=== PATIENT | female | born 1940 | race Caucasian/White ===

== ENCOUNTER → 2018-09-23 15:03 | Outpatient (CLI) | payer OTHER, SELFPAY ==
--- NOTE | 2018-09-23 | DI.MG.S_ITS ---
BILATERAL DIGITAL SCREENING MAMMOGRAM 3D/2D WITH CAD POST LUMPECTOMY: 09/23/2018 CLINICAL: Routine screening. Family history of breast cancer. Personal history of breast cancer. Comparison is made to exams dated: 06/30/2017 mammogram, 05/03/2015 mammogram, and 05/02/2014 mammogram - [facility]. The tissue of both breasts is heterogeneously dense. This may lower the sensitivity of mammography. Current study was also evaluated with a Computer Aided Detection (CAD) system. There are benign post operative findings in the right breast. There also are benign calcifications in both breasts. No significant masses, calcifications, or other findings are seen in either breast. There has been no significant interval change. IMPRESSION: There is no mammographic evidence of malignancy. A 1 year screening mammogram is recommended. This exam was interpreted at Station ID: [id number]. NOTE: For mammograms, a report in lay terms will be sent to the patient. Approximately 15% of breast malignancies will not be visualized mammographically. In the management of a palpable breast mass, a negative mammogram must not discourage biopsy of a clinically suspicious lesion. Electronically Signed By: Brayan [email or web address]:09/23/2018 17:35:14 letter sent: Normal Exam ACR BI-RADS Category 2: Benign Finding(s) 3342F
== END ==
PROVIDERS: Family Provider Family Medicine; PCP Family Medicine; Visit Provider Family Medicine
DX: Z12.31 Encounter for screening mammogram for malignant neoplasm of breast (principal); Z85.3 Personal history of malignant neoplasm of breast; Z80.3 Family history of malignant neoplasm of breast
CPT/HCPCS: 77063; 77067

== ENCOUNTER → 2018-09-29 08:00 | Outpatient (CLI) | payer OTHER, SELFPAY ==
[2018-09-29 08:21] LABS: Add Manual Diff / Slide Review NO; Basophils Absolute Auto 0 /uL (0-100); Basophils Percent Auto 0.6 % (0-2); Eosinophils Absolute Auto 200 /uL (0-450); Eosinophils Percent Auto 2.6 % (2-4); Hematocrit 39.6 % (36-46); Hemoglobin 13.3 g/dL (12.0-16.0); Lymphocytes Absolute Auto 1800 /uL (1100-4500); Lymphocytes Percent Auto 29.1 % (25-40); Mean Corpuscular HGB Conc 33.7 % (30-36); Mean Corpuscular Hemoglobin 32.1 PG (26-34); Mean Corpuscular Volume 95.5 fL (80-100); Monocytes Absolute Auto 300 /uL (0-900); Monocytes Percent Auto 5.7 % (3-14); Neutrophils Absolute Auto 3800 /uL (1500-7000); Platelet Count 246 X10^3/uL (150-400); Red Blood Cell Count 4.14 X10^6/uL (4.0-5.2); Red Cell Distribution Width 13.3 % (11.6-14.8); White Blood Cell Count 6.1 X10^3/uL (4.5-11.0)
[2018-09-29 08:45] LABS: Alanine Aminotransferase 30 IU/L (9-52); Albumin 4.4 g/dL (3.5-5.0); Albumin Globulin Ratio 1.6 (1.0-2.8); Alkaline Phosphatase 77 U/L (38-126); Aspartate Aminotransferase 28 IU/L (14-36); Bilirubin Total 0.6 mg/dL (0.2-1.3); Blood Urea Nitrogen 26 mg/dL (7-17); Calcium 9.4 mg/dL (8.4-10.2); Carbon Dioxide 31 mmol/L (22-32); Chloride 98 mmol/L (98-107); Cholesterol 194 mg/dL (140-199); Estimated Glomerular Filt Rate 39.6 mL/min (>60); Globulin 2.7 g/dL (1.7-4.1); Glucose 100 mg/dL (80-110); HDL Cholesterol 65 mg/dL (40-60); HEMOLYSIS < 15 (0-50); LDL Cholesterol Calculated 95 mg/dL (<100); Potassium 4.8 mmol/L (3.4-5.1); Sodium 137 mmol/L (137-145); Total Protein 7.1 g/dL (6.3-8.2); Triglycerides 171 mg/dL (35-150)
[2018-09-29 09:45] LABS: Thyroid Stimulating Hormone 3.81 uIU/mL (0.47-4.68)
== END ==
PROVIDERS: PCP Family Medicine; Visit Provider Family Medicine
DX: E78.2 Mixed hyperlipidemia (principal); I10 Essential (primary) hypertension
CPT/HCPCS: 36415; 80053; 80061; 84443; 85025

== ENCOUNTER → 2018-10-22 09:43 | Outpatient (CLI) | payer OTHER, SELFPAY | PROVIDERS: PCP Family Medicine; Visit Provider Family Medicine | DX: M85.851 Other specified disorders of bone density and structure, right thigh (principal); Z78.0 Asymptomatic menopausal state; Z85.3 Personal history of malignant neoplasm of breast | CPT/HCPCS: 77080 ==

== ENCOUNTER → 2018-12-17 14:05 | Outpatient (CLI) | payer OTHER, SELFPAY ==
[2018-12-17 15:08] LABS: Add Manual Diff / Slide Review NO; Basophils Absolute Auto 0 /uL (0-100); Basophils Percent Auto 0.5 % (0-2); Eosinophils Absolute Auto 100 /uL (0-450); Eosinophils Percent Auto 1.4 % (2-4); Hematocrit 38.5 % (36-46); Hemoglobin 13.3 g/dL (12.0-16.0); Lymphocytes Absolute Auto 1900 /uL (1100-4500); Mean Corpuscular HGB Conc 34.5 % (30-36); Mean Corpuscular Hemoglobin 32.5 PG (26-34); Mean Corpuscular Volume 94.1 fL (80-100); Monocytes Absolute Auto 400 /uL (0-900); Neutrophils Absolute Auto 4600 /uL (1500-7000); Neutrophils Percent Auto 65.1 % (50-75); Platelet Count 280 X10^3/uL (150-400); Red Blood Cell Count 4.09 X10^6/uL (4.0-5.2); Red Cell Distribution Width 13.5 % (11.6-14.8); White Blood Cell Count 7.1 X10^3/uL (4.5-11.0)
[2018-12-17 15:34] LABS: Carbon Dioxide 29 mmol/L (22-32); Chloride 99 mmol/L (98-107); HEMOLYSIS < 15 (0-50); Potassium 4.6 mmol/L (3.4-5.1); Sodium 137 mmol/L (137-145)
== END ==
PROVIDERS: PCP Family Medicine; Visit Provider Orthopaedic Surgery
DX: M16.10 Unilateral primary osteoarthritis, unspecified hip (principal); Z01.818 Encounter for other preprocedural examination; Z01.812 Encounter for preprocedural laboratory examination
CPT/HCPCS: 36415; 80051; 85025; 93005

== ENCOUNTER 2019-01-10 06:18 | Inpatient (IN) | payer OTHER, SELFPAY ==
[2018-12-27 08:57] VITALS: BMI 20.6
[2019-01-10] VITALS (15 sets, daily range): BP systolic 96–157; BP diastolic 53–69; PULSE 66–80; RESP 16–20; TEMP 35.4–37.1; O2SAT 97–100; BMI 19.4
--- NOTE | 2019-01-10 06:00 | DI.RAD.S_ITS ---
PROCEDURE: XR PELVIS 1-2V INDICATIONS: post op films TECHNIQUE: 1 view of the lower pelvis acquired. COMPARISON: [facility] [place]Sar[facility] [place], ALCIDES, XR PELVIS WITH LATERAL HIP LEFT, 12/08/2018, 15:10. FINDINGS: Bones: Patient is status post left hip arthroplasty, with hardware components in expected positions. The hip joint appears congruent. The visualized bony structures appear intact. Moderate degenerative narrowing is present within the right hip with a slight appearance of femoral head remodeling. Soft tissues: Overlying postoperative changes are noted. No suspicious soft tissue densities. IMPRESSION: Left hip arthroplasty as above. Dictated by: Kita Crystal M.D. on 01/10/2019 at 11:09 Approved by: Kita Crystal M.D. on 01/10/2019 at 11:09
[2019-01-10] MEDS: ACETAMINOPHEN 325 MG TABLET 975 MG PO ×3 (07:21→20:23)
[2019-01-10] MEDS: PREGABALIN 75 MG CAPSULE PO (07:21)
[2019-01-10] MEDS: CELECOXIB 200 MG CAPSULE PO (07:21)
[2019-01-10] MEDS: LACTATED RINGERS 1,000 ML 42 ML IV (07:47)
[2019-01-10] MEDS: TRANEXAMIC ACID 1,000 MG VIAL 1000 MG INJ ×2 (07:53→09:27)
--- NOTE | 2019-01-10 07:54 | PM.PREOP ---
Pre-operative Note Interval Note History & Physical reviewed/Exam performed by Physician: Yes Changes to H&P: No
--- NOTE | 2019-01-10 08:31 | SUR.OPER ---
Head on pillow. Supine on fracture table with operative leg secured in traction. Other leg in traction boot without traction applied. Left Arm across chest, secured with sheet. Right arm secured on padded armboard
[2019-01-10] MEDS: KETOROLAC 30 MG/ML VIAL IV (08:41)
[2019-01-10] MEDS: CEFAZOLIN 1 GM VIAL IV (08:41)
[2019-01-10] MEDS: MORPHINE 4 MG/ML INJ INJ (08:42)
--- NOTE | 2019-01-10 09:57 | PM.OP.1 ---
Operative Date/Time/Diagnoses Date of procedure: 01/10/19 Time of procedure: 09:57 Pre-op diagnosis: Left hip degenerative joint disease Post-op diagnosis: same Procedure & Clinicians Procedure: Left total hip arthroplasty, direct anterior approach (CPT code 32801 with glass ribbon machine operator assistant) Same procedure as scheduled: Yes Indications: Patient is an 78-year-old female with severe left hip DJD. The patient has pain with activities and at rest, limited ambulation and activity tolerance, difficulties with ADLs, and failure of conservative treatment. We have discussed the nature of condition, treatment options, risks and benefits, and patient elects to proceed with total hip arthroplasty via direct anterior approach and gives informed consent. Surgeon: Arben Centeno Diversity Specialist: Garland Booker Anesthesia Type: General and Spinal Operative Notes Closure Type: primary Specimen(s): none sent Prosthetic devices, grafts, tissues, transplants, or devices: Acetabulum: Lopez and Nephew R3 acetabular component size 52 mm Femoral component: Lopez and Nephew Anthology stem size 8 with standard offset Femoral head: 36 mm + 4 cobalt chrome Estimated Blood Loss (mL): 150 Blood products transfused: none Procedure in detail: Patient brought to the operating room where after administration of intravenous antibiotics and satisfactory induction of anesthetic patient placed supine on the Anthony table with all bony prominences well padded in feet placed in the ski boots. First dose of tranexamic acid was administered, and the left hip and lower extremity prepped and draped in usual sterile fashion. Incision made beginning just distal and lateral to the ASIS and carried distally. Incision then carried through the subcutaneous tissues down the fascia of the TFL which was incised longitudinally and the muscle was stripped posteriorly allowing entry into the intermuscular interval. Retractors then placed in the circumflex vessels identified and cauterized. Pericapsular tissues then debrided and a capsulotomy was performed with lateral capsulectomy. After capsular releases were performed the location of the femoral neck cut was determined and double checked with C-arm. Femoral neck cut then made and the femoral head removed with the corkscrew device. Acetabular retractors then placed and periacetabular tissues were debrided. Acetabular reaming to 51 mm was performed with an excellent circumferential ream and fit with the trial. Fluoroscopic images with the trial in place demonstrated excellent position and alignment so the trial was removed, the acetabulum irrigated, and a size 52 mm Lopez and Nephew R3 acetabular component was inserted and impacted into position under fluoroscopic guidance. Excellent position and fixation achieved a permanent liner was then inserted. The femur was then maximally externally rotated extended and adducted. Remaining pericapsular tissues were released, and then sequential broaching of the femur was performed up to size 8. Trial reduction performed with a [address] yielded excellent leg length range of motion and stability characteristics and fluoroscopic images demonstrated excellent position fixation of the implant and excellent leg length relationships. The trial and broach were then removed and the canal irrigated a size 8 anthology stem was selected inserted and impacted into position and a +4 ball was affixed. The hip was then reduced and excellent stability was achieved. The pericapsular tissues infiltrated with ropivacaine, morphine, and Toradol. Final fluoroscopic images demonstrated excellent position and fixation of implants and excellent leg lengths. The wound was then copious irrigated 2nd dose of tranexamic acid was administered intravenously. The fascia of the TFL was closed with a running #1Vicryl. Subcutaneous layer closed with 2 O Vicryl and skin closed with a running intracuticular locking stitch and skin adhesive. Sterile dressings applied. Complications: none Condition: stable Disposition: PACU Plan for aftercare: Patient will be admitted to the acute care pizarro, and anticipate discharge on postop day 1-2 with follow-up in office in 10-14 days. Outpatient physical therapy will be arranged and patient will continue to observe posterior hip precautions. Patient will continue use of postoperative Lovenox for 10 days postop.
--- NOTE | 2019-01-10 10:24 | SUR.PHASEI ---
Report called to Gab
--- NOTE | 2019-01-10 10:38 | SUR.PHASEI ---
Pt transferred to the floor with belongings bag. Report to Gab. VS stable. IV saline locked. Lt hip drsg cdi. Pt able to wiggle toes and bend lt knee.
--- NOTE | 2019-01-10 11:03 | CM.DANOTE ---
DCP: Case received, EMR reviewed and met with patient. Introduced self and role. Updated whiteboard in patient's room. Was able to retrieve information from patient regarding her baseline health. DCP template completed with information currently available. Patient is a 78 year old female who admitted early this morning to the care of the surgical team. PCP: Dr. Seymour. Payer: confirmed: [facility]. Patient came to hospital for surgical procedure. She had L. Total Hip Arthroplasty. Met briefly with patient. Alert and oriented. Defined role of site planner. She resides with her Celia, here in [place]. Mentioned resources, such as home health, and she stated, I don't think I'll need it. Patient has not yet been up working with physical therapy. P: DCP to continue to follow. Will collaborate with the physical therapy team as well. Tram Valentin RN/Paper Box Maker
[2019-01-10] MEDS: LACTATED RINGERS 1,000 ML 125 ML IV (11:13)
[2019-01-10] MEDS: ROPIVACAINE 0.5% PF 5 MG/ML 20ML AMP 60 ML INJ (11:51)
--- NOTE | 2019-01-10 15:26 | PC.ADMIT ---
[email or web address] [address] Admission Note: The patient,Lupe Suazo,78 y/o, was given written information regarding hospital policies, unit procedures and contact persons. Patient's smoking status: Never smoker. Vital Signs - 8 hr 01/10/19 09:49 01/10/19 09:54 01/10/19 09:59 Temperature 96.5 F L Pulse Rate 78 73 73 Respiratory Rate 16 17 17 Blood Pressure 96/53 L 108/53 L 118/59 L Pulse Oximetry 97 99 99 01/10/19 10:04 01/10/19 10:09 01/10/19 10:19 Temperature Pulse Rate 71 75 66 Respiratory Rate 18 18 17 Blood Pressure 126/64 117/59 L 129/63 Pulse Oximetry 100 99 100 01/10/19 10:38 01/10/19 11:08 01/10/19 11:36 Temperature 95.8 F L 96 F L 96.4 F L Pulse Rate 69 70 69 Respiratory Rate 16 16 16 Blood Pressure 130/62 124/66 133/63 Pulse Oximetry 100 100 100 01/10/19 12:28 01/10/19 13:35 Temperature 96.6 F L 96.7 F L Pulse Rate 72 77 Respiratory Rate 16 16 Blood Pressure 144/63 H 139/62 Pulse Oximetry 98 100 PATIENT HAS BEEN STABLE SINCE ADMIT TO UNIT. FULL SENSATION AND MVMT. CMS INTACT. RA SAT UPPER 90'S TO 100%. TOLERATED LUNCH, NO NAUSEA. CONT PULSE OX IN PLACE. DENIES PAIN. URGE TO VOID AT THIS TIME. PHYSICAL THERAPY IN W/ PATIENT. REPORT GIVEN TO ADI SHAIKH RN.
--- NOTE | 2019-01-10 15:44 | PT.IIE ---
Current Diagnoses Unilateral primary osteoarthritis, left hip (01/10/19) Surgery Performed Operation Date: 01/10/19 07:45 Actual Procedures p Total Hip Arthroplasty/Anterior(Left) - Arben Centeno MD Surgical History (Last Updated 12/27/18 @ 09:10 by Veena Miranda, RN) History of left oophorectomy (Acute ~1967) History of lumpectomy of right breast (Acute ~1984) History of total abdominal hysterectomy (Acute) Status post bilateral cataract extraction (Acute ~2009) History of tonsillectomy Status post hysterectomy Medical History (Last Updated 12/27/18 @ 09:10 by Veena Miranda RN) Breast cancer, right (Acute ~1984) Easy bruisability (Acute) HTN (hypertension) (Acute) Lymphedema (Acute) Osteoarthritis (Acute) Ovarian cyst, left (Acute ~1967) Psoriasis (Acute) Sebaceous cyst (Acute) Subcutaneous mass (Acute ~08/2017) Physical Therapy Inpatient Evaluation/Re-Eval M1 PT/OT-IP Prior Functional Status Start: 01/10/19 15:44 Freq: NEEDED Status: Active Protocol: Document 01/10/19 15:44 RS (Rec: 01/10/19 15:53 RS [email or web address]) Medical Review Prior Functional Status Medical History Reviewed Yes Diet/Fluid Consistency Regular Communication no known deficits Mobility and Gait ind without device but does have a FWW ready to go Activities of Daily Living and IADL's ind Prior Functional Level (Other details) can provide 24/7 assist if needed Social History Household Members spouse Living Arrangements House Number of Floors (Floors) One Floor Number of Stairs To Enter/Railing? 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 [employer] M2 PT-IP Current Condition Start: 01/10/19 15:44 Freq: NEEDED Status: Active Protocol: Document 01/10/19 15:44 RS (Rec: 01/10/19 15:53 RS [email or web address]) Physical Therapy Current Condition Current Condition Evaluation Date 01/10/19 Treatment Diagnosis L anterior DIANA Onset Date 01/10/19 Precautions Anterior Hip Precautions No Hip Extension No Hip External Rotation Weight Bearing Status Weight Bearing Status Weight Bear as Tolerated M3 PT-IP Subjective Start: 01/10/19 15:44 Freq: NEEDED Status: Active Protocol: Document 01/10/19 15:44 RS (Rec: 01/10/19 15:53 RS [email or web address]) Subjective Physical Therapy Visit Type Type Initial Evaluation Visit Start Time 14:45 Visit Stop Time 15:44 Total Visit Minutes 59 Physical Therapy Visit Comments Patient Comments Pt denies any pain, is looking forward to moving for the first time, is hoping to go directly home. Patient Goals go home Therapy Pain Assessment Pain When Pain Assessed During Mobility Pain Present Pain Present Denied Pain M4 PT-IP Mobility and Gait Start: 01/10/19 15:44 Freq: NEEDED Status: Active Protocol: Document 01/10/19 15:44 RS (Rec: 01/10/19 15:53 RS [email or web address]) PT-Bed Mobility Assessment Rolling Type of Rolling Roll to Left Level of Assist Contact Guard Assistance Supine to Sit Supine to Sit Minimal Assistance Bedrails Sit to Supine Sit to Supine Minimal Assistance Bedrails Scooting Scooting to Edge of Bed Contact Guard Assistance PT-Transfer Assessment Sit to and From Stand Sit to and from Stand Minimal Assistance Equipment Transfer Assistive Device Gait Belt Front Wheeled Walker Transfers Transfer Destination Bed Bedside Commode Transfer Technique Stand Step Pivot Transfer Ability Level of Assist Minimal Assistance Comments Mobility Comments Pt's first attempt at sitting up to long sit was no successful as pt suddenly had the strong urge to urinate. Pt needing/wanting to go quickly and did not have brief on. PT helped pt quickly sit up to EOB and stand pivot to the R to the BSC. Pt trying to keep legs together to prevent leakage which made the actually transfer quite challenging. Once pt was able to urinate and get cleaned up pt was able to stand up with CGA and perform the transfer back to bed with CGA though stepping pattern was still uncoordinated and pt was quite shakey. Min A to return to supine. Further mobility could not be trialed as RN needing to change pt's IV because it was leaking blood. Gait Assessment Comments Gait Comments not yet assessed Stair Climbing Assessment Comments Stair Climbing Comments not yet assessed PT-Balance Assessment Sitting Balance and Reactions Static Sitting Balance Ability Normal Dynamic Sitting Balance Ability Good Standing Balance and Reactions Static Standing Balance Ability Fair Dynamic Standing Balance Ability Poor Device Used FWW M5 PT-IP Objective Assessments Start: 01/10/19 15:44 Freq: NEEDED Status: Active Protocol: Document 01/10/19 15:44 RS (Rec: 01/10/19 15:53 RS [email or web address]) Orientation Orientation/Cognition Level of Alertness Alert Orientation Name Age Birthday Month Date Year Day of Week Place Situation Language Function Ability No Deficits Noted Safety Awareness Understands Safety Issues Memory Description No Deficits Noted Gross Range of Motion Upper Extremity ROM Assessment Within Functional Limits Lower Extremity ROM Impairments limited by anterior hip precautions but otherwise WFL Strength Upper Extremity Strength Assessment Within Functional Limits Comments Strength Comments LLE limited after surgery, RLE grossly intact M6 PT-IP Treatment Start: 01/10/19 15:44 Freq: NEEDED Status: Active Protocol: Document 01/10/19 15:44 RS (Rec: 01/10/19 15:53 RS [email or web address]) Physical Therapy Treatment Exercises Exercises Ankle Pumps Gluteal Sets Quad Sets Heel Slides Supine Hip Abduction Education Education Provided Precautions Weight Bearing Status Post-Op Packet Safety M7 PT-IP Assessment and Plan Start: 01/10/19 15:44 Freq: NEEDED Status: Active Protocol: Document 01/10/19 15:44 RS (Rec: 01/10/19 15:53 RS [email or web address]) PT Summary Assessment and Plan Potential Rehabilitation Potential Good Status of Condition at Evaluation Evolving Summary Impairments Balance Coordination Bed Mobility Transfers Gait Activity Tolerance Frequency of Treatment Frequency Of Treatment Twice a Day Recommendations To Nursing Amount of Assist Needed 1 Person Assist Discharge Recommendations PT Discharge Recommendations Home with Assistance Home Health
--- NOTE | 2019-01-10 16:28 | PC.NURSE ---
Addendum entered by Rena Griffith R.N. 01/10/19 20:44: Pt awake, watching TV. Denies any discomfort when asked. IVF continue as per orders w/o incidence. Aquacell dsg CDI. Satisfactory post op course. Call light w/in reach, bed alarm on for pt safety. Continue w/plan of care. Original Note: Pt visiitng w/family. Assistd to BSC by PT w/o incidence. Voided 450cc clear yellow urine. IV LR infusing into the LFA @ 125 via pump w/o incidence. Aquacell dsg to left anterior CDI. Stable post op course. Call light w/in reach, pt calls appropriatly fo needs.
[2019-01-10] MEDS: CEFAZOLIN 2 GM/100 ML FROZ.PIGGY IV ×2 (17:10→23:54)
--- NOTE | 2019-01-11 00:16 | PC.NURSE ---
2300- Pt POD#0 L total hip via anterior approach; aquasil drsg in place CDI. Pt moving SBA w/ FWW to bathroom, denies any postop pain at this time. Cont SpO2 taken off by this RN as its been >12 hours postop, sats stable on RA. LR running as ordered, pt having good urine output/no nausea so LR shut off per protocol. 0000- Second dose of IV Cefazolin hung per orders.
[2019-01-11 04:40] VITALS: BP 140/73; PULSE 74; RESP 16; TEMP 36.7; O2SAT 98
[2019-01-11 06:10] LABS: Hematocrit 31.9 % (36-46); Hemoglobin 10.9 g/dL (12.0-16.0)
--- NOTE | 2019-01-11 07:38 | PM.DS.1 ---
History of Present Illness Date Patient Seen: 01/11/19 Time Patient Seen: 07:39 Chief complaint: [id number] Total Hip Arthroplasty Narrative: Patient is an 78-year-old female with severe left hip DJD. The patient has pain with activities and at rest, limited ambulation and activity tolerance, difficulties with ADLs, and failure of conservative treatment. We have discussed the nature of condition, treatment options, risks and benefits, and patient elects to proceed with total hip arthroplasty via direct anterior approach and gives informed consent. Discharge Providers Date of admission: 01/10/19 06:18 Discharge Date: 01/11/19 Primary care physician: Sherman Syemour MD Consults: 01/10/19 10:38 Consult to Discharge Planning Routine Comment: Consult to Physical Therapy Evaluate & Treat Comment: Physician Instructions: post op DIANA protocol Consult to Respiratory Therapy Evaluate & Treat Comment: Physician Instructions: Evaluate and treat Discharge provider: Jovita Herman PA-C Summary Discharge Diagnosis: s/p DIANA Hospital Course: Lupe was admitted for left total hip arthroplasty anterior approach with Dr. Centeno. Hospital course was unremarkable. On postop day 1. Patient was ready to discharge home. Her pain was well controlled. She is eating and voiding without difficulty or assistance. She has been up with physical therapy and ambulating. She has all her appointments scheduled for the outpatient setting. Her calves were soft, compressible, nontender bilaterally. Lovenox for VTE prophylaxis. Exam Vital Signs (past 8 hours): - 01/10/19 23:45 01/11/19 04:40 Temperature 97.5 F L 98.1 F Pulse Rate 73 74 Respiratory Rate 20 16 Blood Pressure 149/69 H 140/73 Pulse Oximetry 99 98 Oxygen Delivery Method Room Air Narrative Exam Narrative: Patient lying in bed in no acute distress. She is alert and oriented x3. Dressing on left hip is CDI. Calves are soft, compressible, nontender bilaterally. Sensation intact to light touch throughout bilateral lower extremities. She does not have a lot of pain this morning. She got up with physical therapy yesterday after surgery. Objective Labs Result Diagrams: 01/11/19 05:54 Labs: Laboratory Results - last 24 hr 01/11/19 05:54 Hgb 10.9 L Hct 31.9 L Discharge Plan Discharge Plan Patient Disposition: Home Discharge Med Rec/Prescriptions Prescriptions: New hydroxyzine pamoate 25 mg Capsule 25 mg PO Q6HR PRN (Reason: Spasms) Qty: 20 RF: 0 enoxaparin [Lovenox] 40 mg/0.4 mL Syringe 40 mg subcut DAILY 9 Days RF: 0 Continued amlodipine 2.5 mg tablet 2.5 mg PO DAILY Qty: 90 RF: 3 Changed acetaminophen [Tylenol Extra Strength] 500 mg Tablet 1,000 mg PO TID Qty: 0 RF: 0 Follow up/Referrals: Sherman Seymour MD [Primary Care Provider] - Arben Centeno MD [Physician] - Provider Discharge Instructions Activity: DIANA anterior approach precautions Skin/Wound/Dressing Care Report to your healthcare provider any signs of infection, such as:: chills, fever and increased pain Dressing: leave in place Discharge Data Primary Care Provider: Sherman Seymour Attending Provider: Arben Centeno Admit Date/Time: 01/10/19 06:18
[2019-01-11] MEDS: AMLODIPINE 2.5 MG TABLET PO (08:42)
[2019-01-11] MEDS: ACETAMINOPHEN 325 MG TABLET 975 MG PO (08:42)
[2019-01-11 08:58] VITALS: BP 125/63; PULSE 78; RESP 16; TEMP 36.3; O2SAT 96
[2019-01-11] MEDS: ENOXAPARIN 40 MG/0.4 ML SYRINGE SUBCUT (09:53)
--- NOTE | 2019-01-11 09:54 | PT.IPTN ---
Current Diagnoses Unilateral primary osteoarthritis, left hip (01/10/19) Surgery Performed Operation Date: 01/10/19 07:45 Actual Procedures p Total Hip Arthroplasty/Anterior(Left) - Arben Centeno MD Physical Therapy Treatment Note M2 PT-IP Current Condition Start: 01/10/19 15:44 Freq: NEEDED Status: Active Protocol: Document 01/10/19 15:44 RS (Rec: 01/10/19 15:53 RS [email or web address]) Physical Therapy Current Condition Current Condition Evaluation Date 01/10/19 Treatment Diagnosis L anterior DIANA Onset Date 01/10/19 Precautions Anterior Hip Precautions No Hip Extension No Hip External Rotation Weight Bearing Status Weight Bearing Status Weight Bear as Tolerated M3 PT-IP Subjective Start: 01/10/19 15:44 Freq: NEEDED Status: Active Protocol: Document 01/11/19 09:39 SA (Rec: 01/11/19 09:54 SA [id number]) Subjective Physical Therapy Visit Type Type Treatment Note Visit Start Time 08:27 Visit Stop Time 09:00 Total Visit Minutes 33 Number of PIER HAND HELPER Visits 1 Physical Therapy Visit Comments Patient Comments Pt has improving LLE sensation and very little pain. Therapy Pain Assessment Pain When Pain Assessed During Mobility Pain Present Pain Present Pain Reported Location Left Medial Hip Intensity 2 Scale Used Numeric (1 - 10) Pain Management Techniques Apply Cold Timing of Activity with Medications M4 PT-IP Mobility and Gait Start: 01/10/19 15:44 Freq: NEEDED Status: Active Protocol: Document 01/11/19 09:39 SA (Rec: 01/11/19 09:54 SA [id number]) PT-Bed Mobility Assessment Rolling Type of Rolling Roll to Left Level of Assist Standby Assistance Supine to Sit Supine to Sit Contact Guard Assistance Bedrails Sit to Supine Sit to Supine Contact Guard Assistance Bedrails Scooting Scooting to Edge of Bed Standby Assistance PT-Transfer Assessment Sit to and From Stand Sit to and from Stand Contact Guard Assistance Equipment Transfer Assistive Device Gait Belt Front Wheeled Walker Transfers Transfer Destination Bed Chair Transfer Technique Stand Step Pivot Transfer Ability Level of Assist Contact Guard Assistance Comments Mobility Comments Pt with improving mobility, CGA for bed mobility and transfers. Uses FWW safely. Pt reports very little pain with WBing. Gait Assessment Gait Gait Assistance Required: Standby Assistance Contact Guard Assist 1 Person Assist Distance (Feet) 200 Able to Maintain Weight Bearing Status Yes During Gait Assistive Devices Assistive Device Gait Belt Front Wheeled Walker Orthotic/Prosthetic Devices or Brace: No Gait Deviations General Gait Pattern Decreased Stride Length Step-to Gait Factors Limiting Gait Function Factors Limiting Gait Function Decreased Activity Tolerance Decreased Strength Comments Gait Comments Pt with step to gait pattern to maintain ANT hip precautions. Pt forgets at times and needs cues to maintain as she has very little pain and reverts back to normal gait pattern. Stair Climbing Assessment Evaluation Level of Assist On Stairs Contact Guard Assistance 1 Person Assistance Devices Stair Climbing Assistive Devices Left Railing Right Railing Technique/Endurance Stair Climbing Direction Ascend and Descend Stair Climbing Technique Step to Step Number of Steps Climbed 1 Query Text: Stair Climbing Set # Repetitions (reps) 2 Comments Stair Climbing Comments CGA with step to gait and use of B rails, pt had incidence of R knee buckle but was able to recover with Min A. PT-Balance Assessment Comments Other Balance Tests/Deviations/Treatment Standing weight shifting, : postural correction and decreased WBing through UEs. M5 PT-IP Objective Assessments Start: 01/10/19 15:44 Freq: NEEDED Status: Active Protocol: Document 01/10/19 15:44 RS (Rec: 01/10/19 15:53 RS [email or web address]) Orientation Orientation/Cognition Level of Alertness Alert Orientation Name Age Birthday Month Date Year Day of Week Place Situation Language Function Ability No Deficits Noted Safety Awareness Understands Safety Issues Memory Description No Deficits Noted Gross Range of Motion Upper Extremity ROM Assessment Within Functional Limits Lower Extremity ROM Impairments limited by anterior hip precautions but otherwise WFL Strength Upper Extremity Strength Assessment Within Functional Limits Comments Strength Comments LLE limited after surgery, RLE grossly intact M6 PT-IP Treatment Start: 01/10/19 15:44 Freq: NEEDED Status: Active Protocol: Document 01/11/19 09:39 (Rec: 01/11/19 09:54 [id number]) Physical Therapy Treatment Exercises Exercises Ankle Pumps Gluteal Sets Quad Sets Heel Slides Supine Hip Abduction Education Education Provided Precautions Weight Bearing Status Post-Op Packet Safety M7 PT-IP Assessment and Plan Start: 01/10/19 15:44 Freq: NEEDED Status: Active Protocol: Document 01/11/19 09:39 (Rec: 01/11/19 09:54 [id number]) PT Summary Assessment and Plan Potential Rehabilitation Potential Good Status of Condition at Evaluation Evolving Summary Assessment Summary Pt progressing well, able to manage bed mobility, transfers , gait and steps safely and understands hip precautions. Anticipate d/c home with help. Frequency of Treatment Frequency Of Treatment Twice a Day Recommendations To Nursing Amount of Assist Needed 1 Person Assist Discharge Recommendations PT Discharge Recommendations Home with Assistance Other Discharge Recommendations home health vs OPPT
--- NOTE | 2019-01-11 11:00 | PC.NURSE ---
Reviewed discharge paperwork with patient. Lovenox prescription given, 2 other prescriptions fulfilled before surgery. Pt stated she had no other questions. Pt picked up by daughter, brought down to emergency room entrance by student nurse. Pt tolerated discharge well.
== END 2019-01-11 11:10 | disposition home or self-care (01) | DRG 470 ==
PROVIDERS: Admitting Provider Orthopaedic Surgery; PCP Family Medicine; Visit Provider Orthopaedic Surgery
PROC: 0SRB02Z Replacement of Left Hip Joint with Metal on Polyethylene Synthetic Substitute, Open Approach (ICD-10-PCS; CPT 27130; principal; 2019-01-10 07:45)
DX: M16.12 Unilateral primary osteoarthritis, left hip (principal); I10 Essential (primary) hypertension
CPT/HCPCS: 36415; 72170; 85014; 85018; 97110; 97116; 97162; 97530; C1776; J0690; J1650; J1885; J2250; J2270; J2795

== ENCOUNTER 2019-02-08 09:00 | Outpatient (RCR) | payer OTHER, SELFPAY ==
--- NOTE | 2019-01-05 17:24 | PT.OIE ---
Current Diagnoses Unilateral primary osteoarthritis, unspecified hip (01/05/19) Past Medical History (Last Updated 12/27/18 @ 09:10 by Veena Miranda RN) Breast cancer, right (Acute ~1984) Easy bruisability (Acute) HTN (hypertension) (Acute) Lymphedema (Acute) Osteoarthritis (Acute) Ovarian cyst, left (Acute ~1967) Psoriasis (Acute) Sebaceous cyst (Acute) Subcutaneous mass (Acute ~08/2017) Past Surgical History (Last Updated 12/27/18 @ 09:10 by Veena Miranda RN) History of left oophorectomy (Acute ~1967) History of lumpectomy of right breast (Acute ~1984) History of total abdominal hysterectomy (Acute) Status post bilateral cataract extraction (Acute ~2009) History of tonsillectomy Status post hysterectomy Provider Visit Care Team Role Provider Type Sherman Seymour MD Primary Care Provider Physician Specialty: Family Practice Address: [address] [place] [address], [id number] Email: [email or web address] Arben Centeno MD Attending Provider Physician Specialty: Orthopedic Surgery Address: [address] [place] [address], [id number] Email: [email or web address] Physical Therapy Initial Evaluation PT-OP-A Visit Information Start: 01/05/19 14:37 Freq: Status: Active Protocol: Document 01/05/19 14:39 EA (Rec: 01/05/19 15:12 EA [id number]) Out-Patient Physical Therapy Visit Information Visit Information Visit Type Initial Evaluation Visit Start Time 13:00 Visit Stop Time 13:40 Total Visit Minutes 40 Visit Number 1 Number of WAREHOUSE WORKER 2ND SHIFT Visits 0 Evaluation Information Evaluation Date 01/05/19 Precautions Precautions Post DIANA surgery posterior hip pre-cautions PT-OP-B Current Condition Start: 01/05/19 14:37 Freq: Status: Active Protocol: Document 01/05/19 14:39 EA (Rec: 01/05/19 15:12 EA [id number]) Current Condition History of Current Condition Onset Date 2 years ago Current Complaints Left hip pain, stiffness, and weakness History of Current Condition Present hip condition started more than 2 years ago with no history of injury. Had formal PT 2 years ago and still continuing her HEP since outpatient PT discharge. Pt reports will undergo L DIANA this coming January 10, 2019. She denies knowledge about hip pre-cautions and HEP. Prior Treatments and Tests 2 years ago had formal PT and good results Future Testing and Treatments Planned Left DIANA @ [facility] this coming January 10, 2019 Treatment Goals Patient/Caregiver Goals Patients wants to be able to get back to previous level of function. Gardening and daily walks. Prior Functional Status Baseline Function- ADL's Independent Baseline Function- Mobility Independent Baseline Function- Gait Daily walks > 30 mins with her dog Baseline Function- Work/School Retired Baseline Function- Recreation/Hobbies Daily walks with her dog, backyard gardening Current Functional Impairments (Reported) Functional Limitations- ADL's Limited in activities that requires bending, deep squatting, and long distance walking. Functional Limitations- Mobility/Gait indep with no AD with less < 30 mins walks due to increased of pain Functional Limitations- Work/School Retired Functional Limitations- Recreation/ Unable to walk more than 30 Hobbies mins PT-OP-C Subjective Start: 01/05/19 14:37 Freq: Status: Active Protocol: Document 01/05/19 14:39 EA (Rec: 01/05/19 15:12 EA [id number]) OP-PT Subjective Patient Comments Patient Comments My walks have gotten shorter Patient Reported Progress Worse Patient Questionnaires Lower Extremity Functional Scale LEFS Score 50 LEFS Impairment 20 to 39% Impaired (Score 48- 62) OP-PT Pain Assessment Location Left Medial Hip Pain Location Details left hip Intensity 4 Description Aching Frequency Intermittent Pain Aggravating Factors ADL's Activity Exercise Walking Lifting Pain Alleviating Factors Medication PT-OP-F Manual Assessment Start: 01/05/19 14:37 Freq: Status: Active Protocol: Document 01/05/19 14:39 EA (Rec: 01/05/19 15:12 EA [id number]) Manual Assessments Soft Tissue Assessment Soft Tissue Mobility Assessment Tight hip flexors, ITB, left hip ER Joint Mobility Assessment Joint Mobility Assessment decreased hip joint mobility PT-OP-G Mobility & Gait Start: 01/05/19 14:37 Freq: Status: Active Protocol: Document 01/05/19 14:39 EA (Rec: 01/05/19 15:12 EA [id number]) OP Gait Assessment Gait Gait Assistance Required: Independent Able to Maintain Weight Bearing Status Yes During Gait Assistive Devices Assistive Device None Gait Deviations General Gait Pattern Antalgic PT-OP-J Posture/Palpation/Skin Start: 01/05/19 14:37 Freq: Status: Active Protocol: Document 01/05/19 15:55 EA (Rec: 01/05/19 15:58 EA [id number]) Palpation Assessment Location One Palpation Location left hip Palpation Findings Soft Tissue Tightness PT-OP-K Range of Motion Start: 01/05/19 14:37 Freq: Status: Active Protocol: Document 01/05/19 15:55 EA (Rec: 01/05/19 15:58 EA [id number]) Hip Goniometric Range of Motion Hip Measured in Degrees Right Active Testing Position Supine Flexion w/Knee Flexed 125 Extension 15 Internal Rotation 30 External Rotation 30 Left Active Testing Position Supine Flexion w/Knee Flexed 110 Extension 5 Internal Rotation 15 External Rotation 25 PT-OP-L Special Tests Start: 01/05/19 14:37 Freq: Status: Active Protocol: Document 01/05/19 14:39 EA (Rec: 01/05/19 15:12 EA [id number]) Special Tests Hip Special Tests PIERCE Test Results + PT-OP-M Strength Start: 01/05/19 15:57 Freq: Status: Active Protocol: Document 01/05/19 17:06 EA (Rec: 01/06/19 14:08 EA [id number]) Hip Strength Hip Manual Muscle Testing Left Flexion (L2) 4- Good- Extension (S1) 4 Good Abduction 4- Good- Adduction 4 Good External Rotation 4- Good- Internal Rotation 3+ Fair+ Right Flexion (L2) 5 Normal Extension (S1) 5 Normal Abduction 4+ Good+ Adduction 4+ Good+ External Rotation 5 Normal Internal Rotation 5 Normal Knee Strength Knee Manual Muscle Testing Right Flexion (S2) 5 Normal Left Reason Not Measured WFL PT-OP-Q Treatments Start: 01/05/19 14:37 Freq: Status: Active Protocol: Document 01/05/19 14:39 EA (Rec: 01/05/19 15:12 EA [id number]) Therapeutic Exercises Supine Exercises 3 Supine Exercise Name quads sets Side left Reps/Minutes 15 reps 2 Supine Exercise Name heel slides Side left Reps/Minutes x 15 reps 1 Supine Exercise Name Gluteals sets Side left Reps/Minutes x 10 reps Self-Care/Home Management Treatment Education Patient Education Home Exercise Program Joint Protection Pain Management Posture Safety Other Education educated with trasnfers, bed mobility, HEP, and use of AD PT-OP-T Assessment and Plan Start: 01/05/19 14:37 Freq: Status: Active Protocol: Document 01/05/19 14:39 EA (Rec: 01/05/19 15:12 EA [id number]) Physical Therapy Assessment Rehab Potential Rehabilitation Potential Good Evaluation Complexity Number of Personal Factors/Comorbidities 1-2 Number of Body Systems Impaired 1-2 Clinical Presentation at Evaluation Evolving Impairments Impairments Activity Tolerance Functional Mobility Gait Pain Posture ROM Soft Tissue Mobility Strength Goals Three Impairment Impaired hip strength Critical Care Nurse Practitioner Goal (LTG) Patient will exhibit at least 4/5 or more MMT in all left hip major ms group to imrpove function LTG Duration 5 wks Two Impairment Unable to walk her dog outside daily Critical Care Nurse Practitioner Goal (LTG) Patient will walk with her dog outside daily > 15 mins LTG Duration 6 wks One Impairment NO HEP in place Long-Term Goal (LTG) Patient will exhibit indep HEP and comply to all hip pre- cautions LTG Duration 4 wks Assessment Summary Assessment Pleasant 78 y/o F patient who is referred for pre-hip surgery evaluation. Today patient exhibits signs and symptoms consistent with left hip joint dysfunction. Tests reveals hypo joint mobility with tightness to hip flexors and E-rotators, FABERS +. At this visit, patient is educated with safe bed mobility and transfers after hip surgery. Patient educated with bed exercises post surgery. Patient will benefit with skilled PT once medically stable after hip surgery on . Pt will be re- evaluated on the day of first session post surgery. She demonstrates good rehab potential. Physical Therapy Plan Frequency and Duration Frequency of Treatment 2x/Week Duration of Treatment 8 wks Plan of Care Start Date 01/05/19 Plan of Care End Date 03/02/19 Therapeutic Interventions Therapeutic Interventions Balance Training Gait Training Home Exercise Program Joint Mobilizations Manual Therapy Neuromuscular Re-education Patient/Caregiver Education Self-Care/Home Management Soft Tissue Mobilization Taping Therapeutic Activities Therapeutic Exercises Modalities Cold Pack/Ice Massage Electric Stimulation Hot Packs Paraffin Bath Ultrasound Next Visit Focus/Plan Next Note Type Treatment Note Next Visit Plan re-evaluation after hip surgery
--- NOTE | 2019-01-05 17:35 | PT.OPPOC ---
Current Diagnoses Unilateral primary osteoarthritis, unspecified hip (01/05/19) Provider Visit Care Team Role Provider Type Sherman Seymour MD Primary Care Provider Physician Specialty: Family Practice Address: [address] [place] [address], [id number] Email: [email or web address] Arben Centeno MD Attending Provider Physician Specialty: Orthopedic Surgery Address: [address] [place] [address], [id number] Email: [email or web address] Plan Of Care PT-OP-T Assessment and Plan Start: 01/05/19 14:37 Freq: Status: Active Protocol: Document 01/05/19 14:39 EA (Rec: 01/05/19 15:12 EA [id number]) Physical Therapy Assessment Rehab Potential Rehabilitation Potential Good Evaluation Complexity Number of Personal Factors/Comorbidities 1-2 Number of Body Systems Impaired 1-2 Clinical Presentation at Evaluation Evolving Impairments Impairments Activity Tolerance Functional Mobility Gait Pain Posture ROM Soft Tissue Mobility Strength Goals Three Impairment Impaired hip strength Senior Living Goal (LTG) Patient will exhibit at least 4/5 or more MMT in all left hip major ms group to imrpove function LTG Duration 5 wks Two Impairment Unable to walk her dog outside daily Hotel Receptionist Goal (LTG) Patient will walk with her dog outside daily > 15 mins LTG Duration 6 wks One Impairment NO HEP in place Senior Living Goal (LTG) Patient will exhibit indep HEP and comply to all hip pre- cautions LTG Duration 4 wks Assessment Summary Assessment Pleasant 78 y/o F patient who is referred for pre-hip surgery evaluation. Today patient exhibits signs and symptoms consistent with left hip joint dysfunction. Tests reveals hypo joint mobility with tightness to hip flexors and E-rotators, FABERS +. At this visit, patient is educated with safe bed mobility and transfers after hip surgery. Patient educated with bed exercises post surgery. Patient will benefit with skilled PT once medically stable after hip surgery on . Pt will be re- evaluated on the day of first session post surgery. She demonstrates good rehab potential. Physical Therapy Plan Frequency and Duration Frequency of Treatment 2x/Week Duration of Treatment 8 wks Plan of Care Start Date 01/05/19 Plan of Care End Date 03/02/19 Therapeutic Interventions Therapeutic Interventions Balance Training Gait Training Home Exercise Program Joint Mobilizations Manual Therapy Neuromuscular Re-education Patient/Caregiver Education Self-Care/Home Management Soft Tissue Mobilization Taping Therapeutic Activities Therapeutic Exercises Modalities Cold Pack/Ice Massage Electric Stimulation Hot Packs Paraffin Bath Ultrasound Next Visit Focus/Plan Next Note Type Treatment Note Next Visit Plan re-evaluation after hip surgery Plan of Care Dates Plan of Care Start Date 01/05/19 Plan of Care End Date 03/02/19 Please Sign and Return: I have reviewed this Plan of Care and certify that the skilled therapy services above are required to meet the patient?s needs. Physician Signature Date Printed Name and Credentials Clinical Instructor Signature Printed Name and Credentials
--- NOTE | 2019-01-19 12:15 | PT.OTN ---
Current Diagnoses Unilateral primary osteoarthritis, unspecified hip (01/19/19) Physical Therapy Treatment Note PT-OP-A Visit Information Start: 01/05/19 14:37 Freq: Status: Active Protocol: Document 01/19/19 11:07 EA (Rec: 01/19/19 11:15 EA [id number]) Out-Patient Physical Therapy Visit Information Visit Information Visit Type Treatment Note Visit Start Time 10:30 Visit Stop Time 11:00 Total Visit Minutes 30 Visit Number 2 PT-OP-B Current Condition Start: 01/05/19 14:37 Freq: Status: Active Protocol: Document 01/05/19 14:39 EA (Rec: 01/05/19 15:12 EA [id number]) Current Condition History of Current Condition Onset Date 2 years ago Current Complaints Left hip pain, stiffness, and weakness History of Current Condition Present hip condition started more than 2 years ago with no history of injury. Had formal PT 2 years ago and still continuing her HEP since outpatient PT discharge. Pt reports will undergo L DIANA this coming January 10, 2019. She denies knowledge about hip pre-cautions and HEP. Prior Treatments and Tests 2 years ago had formal PT and good results Future Testing and Treatments Planned Left DIANA @ [facility] this coming January 10, 2019 Treatment Goals Patient/Caregiver Goals Patients wants to be able to get back to previous level of function. Gardening and daily walks. Prior Functional Status Baseline Function- ADL's Independent Baseline Function- Mobility Independent Baseline Function- Gait Daily walks > 30 mins with her dog Baseline Function- Work/School Retired Baseline Function- Recreation/Hobbies Daily walks with her dog, backyard gardening Current Functional Impairments (Reported) Functional Limitations- ADL's Limited in activities that requires bending, deep squatting, and long distance walking. Functional Limitations- Mobility/Gait indep with no AD with less < 30 mins walks due to increased of pain Functional Limitations- Work/School Retired Functional Limitations- Recreation/ Unable to walk more than 30 Hobbies mins PT-OP-C Subjective Start: 01/05/19 14:37 Freq: Status: Active Protocol: Document 01/19/19 11:07 EA (Rec: 01/19/19 11:15 EA [id number]) OP-PT Subjective Patient Comments Patient Comments Pt reports left hip surgery went well eight days ago and is scheduled today for wound care. Pt reports compliant with HEP and pre-cautions. PT-OP-F Manual Assessment Start: 01/05/19 14:37 Freq: Status: Active Protocol: Document 01/05/19 14:39 EA (Rec: 01/05/19 15:12 EA [id number]) Manual Assessments Soft Tissue Assessment Soft Tissue Mobility Assessment Tight hip flexors, ITB, left hip ER Joint Mobility Assessment Joint Mobility Assessment decreased hip joint mobility PT-OP-G Mobility & Gait Start: 01/05/19 14:37 Freq: Status: Active Protocol: Document 01/19/19 11:07 EA (Rec: 01/19/19 11:15 EA [id number]) OP Gait Assessment Gait Gait Assistance Required: Independent Distance (Feet) 100 Able to Maintain Weight Bearing Status Yes During Gait Assistive Devices Assistive Device Straight Cane Gait Deviations General Gait Pattern Step-to Gait Comments Gait Comments Step to gait is necessary at this time due to hip pre- caution reason. PT-OP-J Posture/Palpation/Skin Start: 01/05/19 14:37 Freq: Status: Active Protocol: Document 01/19/19 11:07 EA (Rec: 01/19/19 11:15 EA [id number]) Palpation Assessment Location One Palpation Location left hip Palpation Findings Soft Tissue Tightness PT-OP-K Range of Motion Start: 01/05/19 14:37 Freq: Status: Active Protocol: Document 01/05/19 15:55 EA (Rec: 01/05/19 15:58 EA [id number]) Hip Goniometric Range of Motion Hip Measured in Degrees Right Active Testing Position Supine Flexion w/Knee Flexed 125 Extension 15 Internal Rotation 30 External Rotation 30 Left Active Testing Position Supine Flexion w/Knee Flexed 110 Extension 5 Internal Rotation 15 External Rotation 25 PT-OP-L Special Tests Start: 01/05/19 14:37 Freq: Status: Active Protocol: Document 01/05/19 14:39 EA (Rec: 01/05/19 15:12 EA [id number]) Special Tests Hip Special Tests PIERCE Test Results + PT-OP-M Strength Start: 01/05/19 15:57 Freq: Status: Active Protocol: Document 01/19/19 11:07 EA (Rec: 01/19/19 11:15 EA [id number]) Hip Strength Hip Manual Muscle Testing Left Flexion (L2) 3+ Fair+ Extension (S1) 4- Good- Abduction 3 Fair Adduction 4- Good- Internal Rotation 3+ Fair+ Comments MMT performed to allowed hip range due to precautions Knee Strength Knee Manual Muscle Testing Left Reason Not Measured WFL PT-OP-Q Treatments Start: 01/05/19 14:37 Freq: Status: Active Protocol: Document 01/19/19 11:07 EA (Rec: 01/19/19 11:15 EA [id number]) Therapeutic Exercises Supine Exercises 3 Supine Exercise Name quads sets Side left Reps/Minutes 15 reps 2 Supine Exercise Name heel slides Side left Reps/Minutes x 15 reps 1 Supine Exercise Name Gluteals sets Side left Reps/Minutes x 10 reps Other Exercises 2 Other Exercise Name sink squat Reps/Minutes x 12 reps 1 Other Exercise Name Heel and toe raises Reps/Minutes x 15 reps Self-Care/Home Management Treatment Education Patient Education Home Exercise Program Joint Protection Safety Other Education re-educated with pre-cautions PT-OP-T Assessment and Plan Start: 01/05/19 14:37 Freq: Status: Active Protocol: Document 01/19/19 12:10 EA (Rec: 01/19/19 12:15 EA [id number]) Physical Therapy Assessment Impairments Impairments Activity Tolerance Balance Functional Activities Gait Pain ROM Soft Tissue Mobility Strength Assessment Summary Assessment Pt is s/p 01/10/19 L DIANA which is expected healing well. Patient exhibited good understanding with hip pre- cautions and complied to all hip exercises. She currently using STC and followed recommended gait. However, still requires cues to ensure hip is not in ER position. Patient will continue to benefit with skilled PT. Physical Therapy Plan Next Visit Focus/Plan Next Note Type Treatment Note Next Visit Plan Progress according to DIANA protocol. She currently on max ptotection phase which last up to 3-4 weeks if no complication.
--- NOTE | 2019-01-24 12:13 | PT.OTN ---
Current Diagnoses Unilateral primary osteoarthritis, unspecified hip (01/24/19) Physical Therapy Treatment Note PT-OP-A Visit Information Start: 01/05/19 14:37 Freq: Status: Active Protocol: Document 01/24/19 08:56 EA (Rec: 01/24/19 09:02 EA [id number]) Out-Patient Physical Therapy Visit Information Visit Information Visit Type Treatment Note Visit Start Time 08:15 Visit Stop Time 08:50 Total Visit Minutes 38 Visit Number 3 PT-OP-B Current Condition Start: 01/05/19 14:37 Freq: Status: Active Protocol: Document 01/05/19 14:39 EA (Rec: 01/05/19 15:12 EA [id number]) Current Condition History of Current Condition Onset Date 2 years ago Current Complaints Left hip pain, stiffness, and weakness History of Current Condition Present hip condition started more than 2 years ago with no history of injury. Had formal PT 2 years ago and still continuing her HEP since outpatient PT discharge. Pt reports will undergo L DIANA this coming January 10, 2019. She denies knowledge about hip pre-cautions and HEP. Prior Treatments and Tests 2 years ago had formal PT and good results Future Testing and Treatments Planned [facility] DIANA @ [facility] this coming January 10, 2019 Treatment Goals Patient/Caregiver Goals Patients wants to be able to get back to previous level of function. Gardening and daily walks. Prior Functional Status Baseline Function- ADL's Independent Baseline Function- Mobility Independent Baseline Function- Gait Daily walks > 30 mins with her dog Baseline Function- Work/School Retired Baseline Function- Recreation/Hobbies Daily walks with her dog, backyard gardening Current Functional Impairments (Reported) Functional Limitations- ADL's Limited in activities that requires bending, deep squatting, and long distance walking. Functional Limitations- Mobility/Gait indep with no AD with less < 30 mins walks due to increased of pain Functional Limitations- Work/School Retired Functional Limitations- Recreation/ Unable to walk more than 30 Hobbies mins PT-OP-C Subjective Start: 01/05/19 14:37 Freq: Status: Active Protocol: Document 01/24/19 08:56 EA (Rec: 01/24/19 09:02 EA [id number]) OP-PT Subjective Patient Comments Patient Comments Pt reports compliant with HEP; states sutures will remove tomorrow with no other concerns except of too much high with co-pay. Patient Reported Progress Improving PT-OP-F Manual Assessment Start: 01/05/19 14:37 Freq: Status: Active Protocol: Document 01/05/19 14:39 EA (Rec: 01/05/19 15:12 EA [id number]) Manual Assessments Soft Tissue Assessment Soft Tissue Mobility Assessment Tight hip flexors, ITB, left hip ER Joint Mobility Assessment Joint Mobility Assessment decreased hip joint mobility PT-OP-G Mobility & Gait Start: 01/05/19 14:37 Freq: Status: Active Protocol: Document 01/19/19 11:07 EA (Rec: 01/19/19 11:15 EA [id number]) OP Gait Assessment Gait Gait Assistance Required: Independent Distance (Feet) 100 Able to Maintain Weight Bearing Status Yes During Gait Assistive Devices Assistive Device Straight Cane Gait Deviations General Gait Pattern Step-to Gait Comments Gait Comments Step to gait is necessary at this time due to hip pre- caution reason. PT-OP-J Posture/Palpation/Skin Start: 01/05/19 14:37 Freq: Status: Active Protocol: Document 01/19/19 11:07 EA (Rec: 01/19/19 11:15 EA [id number]) Palpation Assessment Location One Palpation Location left hip Palpation Findings Soft Tissue Tightness PT-OP-K Range of Motion Start: 01/05/19 14:37 Freq: Status: Active Protocol: Document 01/05/19 15:55 EA (Rec: 01/05/19 15:58 EA [id number]) Hip Goniometric Range of Motion Hip Measured in Degrees Right Active Testing Position Supine Flexion w/Knee Flexed 125 Extension 15 Internal Rotation 30 External Rotation 30 Left Active Testing Position Supine Flexion w/Knee Flexed 110 Extension 5 Internal Rotation 15 External Rotation 25 PT-OP-L Special Tests Start: 01/05/19 14:37 Freq: Status: Active Protocol: Document 01/05/19 14:39 EA (Rec: 01/05/19 15:12 EA [id number]) Special Tests Hip Special Tests PIERCE Test Results + PT-OP-M Strength Start: 01/05/19 15:57 Freq: Status: Active Protocol: Document 01/19/19 11:07 EA (Rec: 01/19/19 11:15 EA [id number]) Hip Strength Hip Manual Muscle Testing Left Flexion (L2) 3+ Fair+ Extension (S1) 4- Good- Abduction 3 Fair Adduction 4- Good- Internal Rotation 3+ Fair+ Comments MMT performed to allowed hip range due to precautions Knee Strength Knee Manual Muscle Testing Left Reason Not Measured WFL PT-OP-Q Treatments Start: 01/05/19 14:37 Freq: Status: Active Protocol: Document 01/24/19 08:56 EA (Rec: 01/24/19 09:02 EA [id number]) Cardio Equipment Recumbent Stepper (Sci-Fit) Duration (Minutes) 8 Resistance 1.5 Seat Position 9 Gym Equipment Shuttle Recovery Unilateral Squats Resistance 1 cord Reps/Time x 15 reps Therapeutic Exercises Supine Exercises 3 Supine Exercise Name Bridge Reps/Minutes x 15 reps x 2 Comments foot and knee neutral position Other Exercises 3 Other Exercise Name Bars standing hip flexion Side bilateral Reps/Minutes x 12 reps 2 Other Exercise Name sink squat Reps/Minutes x 12 reps x 2 1 Other Exercise Name Heel and toe raises Reps/Minutes x 15 reps x 2 sets PT-OP-T Assessment and Plan Start: 01/05/19 14:37 Freq: Status: Active Protocol: Document 01/24/19 08:56 EA (Rec: 01/24/19 09:02 EA [id number]) Physical Therapy Assessment Assessment Summary Assessment Pt requires cues to ensure no hip ER during exercises. Patient show not difficulty in all therex and comply to HEP at this time. Patient provided constant hip pre- cautions and educated. She is good to decrease to once a week, otherwise PRN to twice a week. Physical Therapy Plan Next Visit Focus/Plan Next Note Type Treatment Note Next Visit Plan Cont. current plan, progress as tolerated.
--- NOTE | 2019-02-01 16:47 | PT.OTN ---
Current Diagnoses Unilateral primary osteoarthritis, unspecified hip (02/01/19) Physical Therapy Treatment Note PT-OP-A Visit Information Start: 01/05/19 14:37 Freq: Status: Active Protocol: Document 02/01/19 15:32 GGD (Rec: 02/01/19 16:47 GGD [id number]) Out-Patient Physical Therapy Visit Information Visit Information Visit Type Treatment Note Visit Start Time 15:15 Visit Stop Time 15:55 Total Visit Minutes 40 Visit Number 4 Number of RIDING INSTRUCTOR Visits 1 Evaluation Information Evaluation Date 01/05/19 PT-OP-B Current Condition Start: 01/05/19 14:37 Freq: Status: Active Protocol: Document 01/05/19 14:39 EA (Rec: 01/05/19 15:12 EA [id number]) Current Condition History of Current Condition Onset Date 2 years ago Current Complaints Left hip pain, stiffness, and weakness History of Current Condition Present hip condition started more than 2 years ago with no history of injury. Had formal PT 2 years ago and still continuing her HEP since outpatient PT discharge. Pt reports will undergo L DIANA this coming January 10, 2019. She denies knowledge about hip pre-cautions and HEP. Prior Treatments and Tests 2 years ago had formal PT and good results Future Testing and Treatments Planned [facility] DIANA @ [facility] this coming January 10, 2019 Treatment Goals Patient/Caregiver Goals Patients wants to be able to get back to previous level of function. Gardening and daily walks. Prior Functional Status Baseline Function- ADL's Independent Baseline Function- Mobility Independent Baseline Function- Gait Daily walks > 30 mins with her dog Baseline Function- Work/School Retired Baseline Function- Recreation/Hobbies Daily walks with her dog, backyard gardening Current Functional Impairments (Reported) Functional Limitations- ADL's Limited in activities that requires bending, deep squatting, and long distance walking. Functional Limitations- Mobility/Gait indep with no AD with less < 30 mins walks due to increased of pain Functional Limitations- Work/School Retired Functional Limitations- Recreation/ Unable to walk more than 30 Hobbies mins PT-OP-C Subjective Start: 01/05/19 14:37 Freq: Status: Active Protocol: Document 02/01/19 15:32 GGD (Rec: 02/01/19 16:47 GGD [id number]) OP-PT Subjective Patient Comments Patient Comments Pt states she improving and doing her HEP. Patient Reported Progress Improving PT-OP-F Manual Assessment Start: 01/05/19 14:37 Freq: Status: Active Protocol: Document 01/05/19 14:39 EA (Rec: 01/05/19 15:12 EA [id number]) Manual Assessments Soft Tissue Assessment Soft Tissue Mobility Assessment Tight hip flexors, ITB, left hip ER Joint Mobility Assessment Joint Mobility Assessment decreased hip joint mobility PT-OP-G Mobility & Gait Start: 01/05/19 14:37 Freq: Status: Active Protocol: Document 01/19/19 11:07 EA (Rec: 01/19/19 11:15 EA [id number]) OP Gait Assessment Gait Gait Assistance Required: Independent Distance (Feet) 100 Able to Maintain Weight Bearing Status Yes During Gait Assistive Devices Assistive Device Straight Cane Gait Deviations General Gait Pattern Step-to Gait Comments Gait Comments Step to gait is necessary at this time due to hip pre- caution reason. PT-OP-J Posture/Palpation/Skin Start: 01/05/19 14:37 Freq: Status: Active Protocol: Document 01/19/19 11:07 EA (Rec: 01/19/19 11:15 EA [id number]) Palpation Assessment Location One Palpation Location left hip Palpation Findings Soft Tissue Tightness PT-OP-K Range of Motion Start: 01/05/19 14:37 Freq: Status: Active Protocol: Document 01/05/19 15:55 EA (Rec: 01/05/19 15:58 EA [id number]) Hip Goniometric Range of Motion Hip Measured in Degrees Right Active Testing Position Supine Flexion w/Knee Flexed 125 Extension 15 Internal Rotation 30 External Rotation 30 Left Active Testing Position Supine Flexion w/Knee Flexed 110 Extension 5 Internal Rotation 15 External Rotation 25 PT-OP-L Special Tests Start: 01/05/19 14:37 Freq: Status: Active Protocol: Document 01/05/19 14:39 EA (Rec: 01/05/19 15:12 EA [id number]) Special Tests Hip Special Tests PIERCE Test Results + PT-OP-M Strength Start: 01/05/19 15:57 Freq: Status: Active Protocol: Document 01/19/19 11:07 EA (Rec: 01/19/19 11:15 EA [id number]) Hip Strength Hip Manual Muscle Testing Left Flexion (L2) 3+ Fair+ Extension (S1) 4- Good- Abduction 3 Fair Adduction 4- Good- Internal Rotation 3+ Fair+ Comments MMT performed to allowed hip range due to precautions Knee Strength Knee Manual Muscle Testing Left Reason Not Measured WFL PT-OP-Q Treatments Start: 01/05/19 14:37 Freq: Status: Active Protocol: Document 02/01/19 15:32 GGD (Rec: 02/01/19 16:47 GGD [email or web address]) Cardio Equipment Recumbent Stepper (Sci-Fit) Duration (Minutes) 8 Resistance 1.5 Seat Position 9 Gym Equipment Shuttle Recovery Bilateral Squats Resistance 67# Reps/Time 15 x Unilateral Squats Resistance 37# Reps/Time x 15 reps Therapeutic Exercises Supine Exercises 3 Supine Exercise Name Bridge Reps/Minutes x 15 reps x 2 Comments foot and knee neutral position Sitting Exercises hamstring curls Side left Resistance Level 3 Reps/Minutes 20 Other Exercises step ups. Side left Resistance 4 in Reps/Minutes 10 3 Other Exercise Name Bars standing hip flexion Side bilateral Reps/Minutes x 12 reps 2 Other Exercise Name sink squat Reps/Minutes x 12 reps x 2 1 Other Exercise Name Heel and toe raises Reps/Minutes x 15 reps x 2 sets Gait Training Gait Activity 1 Device Used SPC and none Surface level Treatment Focus gait pattern, weight shift Neuro Re-Education Treatment Balance Activities SLS Surface firm Reps/Duration 3 PT-OP-T Assessment and Plan Start: 01/05/19 14:37 Freq: Status: Active Protocol: Document 02/01/19 15:32 GGD (Rec: 02/01/19 16:47 GGD [id number]) Physical Therapy Assessment Goals Three Impairment Impaired hip strength [facility] Goal (LTG) Patient will exhibit at least 4/5 or more MMT in all left hip major ms group to imrpove function LTG Duration 5 wks Two Impairment Unable to walk her dog outside daily [facility] Goal (LTG) Patient will walk with her dog outside daily > 15 mins LTG Duration 6 wks One Impairment NO HEP in place Cable Weaver Goal (LTG) Patient will exhibit indep HEP and comply to all hip pre- cautions LTG Duration 4 wks Assessment Summary Assessment Pt had good tolerance to exercise. She was able to progress strengthening. She did need mod cues for gait. Physical Therapy Plan Next Visit Focus/Plan Next Note Type Treatment Note Next Visit Plan Cont. current plan, progress as tolerated.
--- NOTE | 2019-02-08 10:29 | PT.OTN ---
Current Diagnoses Unilateral primary osteoarthritis, unspecified hip (02/08/19) Physical Therapy Treatment Note PT-OP-A Visit Information Start: 01/05/19 14:37 Freq: Status: Active Protocol: Document 02/08/19 09:42 GGD (Rec: 02/08/19 09:46 GGD [email or web address]) Out-Patient Physical Therapy Visit Information Visit Information Visit Type Treatment Note Visit Start Time 09:00 Visit Stop Time 09:38 Total Visit Minutes 38 Visit Number 5 Number of EDUCATIONAL ASSISTANT TEACHER Visits 2 Evaluation Information Evaluation Date 01/05/19 PT-OP-B Current Condition Start: 01/05/19 14:37 Freq: Status: Active Protocol: Document 01/05/19 14:39 EA (Rec: 01/05/19 15:12 EA [id number]) Current Condition History of Current Condition Onset Date 2 years ago Current Complaints Left hip pain, stiffness, and weakness History of Current Condition Present hip condition started more than 2 years ago with no history of injury. Had formal PT 2 years ago and still continuing her HEP since outpatient PT discharge. Pt reports will undergo L DIANA this coming January 10, 2019. She denies knowledge about hip pre-cautions and HEP. Prior Treatments and Tests 2 years ago had formal PT and good results Future Testing and Treatments Planned Left DIANA @ [facility] this coming January 10, 2019 Treatment Goals Patient/Caregiver Goals Patients wants to be able to get back to previous level of function. Gardening and daily walks. Prior Functional Status Baseline Function- ADL's Independent Baseline Function- Mobility Independent Baseline Function- Gait Daily walks > 30 mins with her dog Baseline Function- Work/School Retired Baseline Function- Recreation/Hobbies Daily walks with her dog, backyard gardening Current Functional Impairments (Reported) Functional Limitations- ADL's Limited in activities that requires bending, deep squatting, and long distance walking. Functional Limitations- Mobility/Gait indep with no AD with less < 30 mins walks due to increased of pain Functional Limitations- Work/School Retired Functional Limitations- Recreation/ Unable to walk more than 30 Hobbies mins PT-OP-C Subjective Start: 01/05/19 14:37 Freq: Status: Active Protocol: Document 02/08/19 09:42 GGD (Rec: 02/08/19 09:46 GGD [email or web address]) OP-PT Subjective Patient Comments Patient Comments Pt states she been walking without the cane PT-OP-F Manual Assessment Start: 01/05/19 14:37 Freq: Status: Active Protocol: Document 01/05/19 14:39 EA (Rec: 01/05/19 15:12 EA [id number]) Manual Assessments Soft Tissue Assessment Soft Tissue Mobility Assessment Tight hip flexors, ITB, left hip ER Joint Mobility Assessment Joint Mobility Assessment decreased hip joint mobility PT-OP-G Mobility & Gait Start: 01/05/19 14:37 Freq: Status: Active Protocol: Document 01/19/19 11:07 EA (Rec: 01/19/19 11:15 EA [id number]) OP Gait Assessment Gait Gait Assistance Required: Independent Distance (Feet) 100 Able to Maintain Weight Bearing Status Yes During Gait Assistive Devices Assistive Device Straight Cane Gait Deviations General Gait Pattern Step-to Gait Comments Gait Comments Step to gait is necessary at this time due to hip pre- caution reason. PT-OP-J Posture/Palpation/Skin Start: 01/05/19 14:37 Freq: Status: Active Protocol: Document 01/19/19 11:07 EA (Rec: 01/19/19 11:15 EA [id number]) Palpation Assessment Location One Palpation Location left hip Palpation Findings Soft Tissue Tightness PT-OP-K Range of Motion Start: 01/05/19 14:37 Freq: Status: Active Protocol: Document 01/05/19 15:55 EA (Rec: 01/05/19 15:58 EA [id number]) Hip Goniometric Range of Motion Hip Right Active Testing Position Supine Flexion w/Knee Flexed 125 Extension 15 Internal Rotation 30 External Rotation 30 Left Active Testing Position Supine Flexion w/Knee Flexed 110 Extension 5 Internal Rotation 15 External Rotation 25 PT-OP-L Special Tests Start: 01/05/19 14:37 Freq: Status: Active Protocol: Document 01/05/19 14:39 EA (Rec: 01/05/19 15:12 EA [id number]) Special Tests Hip Special Tests PIERCE Test Results + PT-OP-M Strength Start: 01/05/19 15:57 Freq: Status: Active Protocol: Document 01/19/19 11:07 EA (Rec: 01/19/19 11:15 EA [id number]) Hip Strength Hip Manual Muscle Testing Left Flexion (L2) 3+ Fair+ Extension (S1) 4- Good- Abduction 3 Fair Adduction 4- Good- Internal Rotation 3+ Fair+ Comments MMT performed to allowed hip range due to precautions Knee Strength Knee Manual Muscle Testing Left Reason Not Measured WFL PT-OP-Q Treatments Start: 01/05/19 14:37 Freq: Status: Active Protocol: Document 02/08/19 09:42 GGD (Rec: 02/08/19 09:46 GGD [email or web address]) Cardio Equipment Recumbent Stepper (Sci-Fit) Duration (Minutes) 8 Resistance 2 Seat Position 9 Gym Equipment Shuttle Recovery Bilateral Squats Resistance 75# Reps/Time 20 x Unilateral Squats Resistance 37# Reps/Time x 15 reps Therapeutic Exercises Supine Exercises 3 Supine Exercise Name Bridge Reps/Minutes x 15 reps x 2 Comments foot and knee neutral position Sidelying Exercises hip Abduction Sidelying Exercise Name hip abduction Side left Reps/Minutes 20 Standing Exercises side step Side bilateral Resistance yellow Reps/Minutes 2 x 20 feet Other Exercises step ups. Side left Resistance 4 in Reps/Minutes 10 2 Other Exercise Name sink squat Reps/Minutes x 12 reps x 2 1 Other Exercise Name Heel and toe raises Side left Reps/Minutes 20 Neuro Re-Education Treatment Balance Activities SLS Surface blue Reps/Duration 5 PT-OP-T Assessment and Plan Start: 01/05/19 14:37 Freq: Status: Active Protocol: Document 02/08/19 09:42 GGD (Rec: 02/08/19 09:46 GGD [email or web address]) Physical Therapy Assessment Assessment Summary Assessment Pt improving with gait and strengthening. She was able to progress hip strengthening. She improved with step up tolerance. Physical Therapy Plan Next Visit Focus/Plan Next Note Type Treatment Note Next Visit Plan Cont. current plan, progress as tolerated.
--- NOTE | 2019-04-19 10:45 | PT.OPDS ---
Current Diagnoses Unilateral primary osteoarthritis, unspecified hip (02/08/19) Provider Visit Care Team Role Provider Type Sherman Seymour MD Primary Care Provider Physician Specialty: Family Practice Address: [address] [place] [address], [id number] Email: [email or web address] Arben Centeno MD Attending Provider Physician Specialty: Orthopedic Surgery Address: [address] [place] [address], [id number] Email: [email or web address] Visit Number Visit Number 5 Discharge Summary PT-OP-B Current Condition Start: 01/05/19 14:37 Freq: Status: Active Protocol: Document 01/05/19 14:39 EA (Rec: 01/05/19 15:12 EA [id number]) Current Condition History of Current Condition Onset Date 2 years ago Current Complaints Left hip pain, stiffness, and weakness History of Current Condition Present hip condition started more than 2 years ago with no history of injury. Had formal PT 2 years ago and still continuing her HEP since outpatient PT discharge. Pt reports will undergo L DIANA this coming January 10, 2019. She denies knowledge about hip pre-cautions and HEP. Prior Treatments and Tests 2 years ago had formal PT and good results Future Testing and Treatments Planned [facility] DIANA @ [facility] this coming January 10, 2019 Treatment Goals Patient/Caregiver Goals Patients wants to be able to get back to previous level of function. Gardening and daily walks. Prior Functional Status Baseline Function- ADL's Independent Baseline Function- Mobility Independent Baseline Function- Gait Daily walks > 30 mins with her dog Baseline Function- Work/School Retired Baseline Function- Recreation/Hobbies Daily walks with her dog, backyard gardening Current Functional Impairments (Reported) Functional Limitations- ADL's Limited in activities that requires bending, deep squatting, and long distance walking. Functional Limitations- Mobility/Gait indep with no AD with less < 30 mins walks due to increased of pain Functional Limitations- Work/School Retired Functional Limitations- Recreation/ Unable to walk more than 30 Hobbies mins PT-OP-C Subjective Start: 01/05/19 14:37 Freq: Status: Active Protocol: Document 04/19/19 10:41 EA (Rec: 04/19/19 10:45 EA [id number]) OP-PT Subjective Patient Comments Patient Comments Patient called fonrt desk and reports would like to discharge in PT; states she is not planning to come back. PT-OP-F Manual Assessment Start: 01/05/19 14:37 Freq: Status: Active Protocol: Document 01/05/19 14:39 EA (Rec: 01/05/19 15:12 EA [id number]) Manual Assessments Soft Tissue Assessment Soft Tissue Mobility Assessment Tight hip flexors, ITB, left hip ER Joint Mobility Assessment Joint Mobility Assessment decreased hip joint mobility PT-OP-G Mobility & Gait Start: 01/05/19 14:37 Freq: Status: Active Protocol: Document 01/19/19 11:07 EA (Rec: 01/19/19 11:15 EA [id number]) OP Gait Assessment Gait Gait Assistance Required: Independent Distance (Feet) 100 Able to Maintain Weight Bearing Status Yes During Gait Assistive Devices Assistive Device Straight Cane Gait Deviations General Gait Pattern Step-to Gait Comments Gait Comments Step to gait is necessary at this time due to hip pre- caution reason. PT-OP-J Posture/Palpation/Skin Start: 01/05/19 14:37 Freq: Status: Active Protocol: Document 01/19/19 11:07 EA (Rec: 01/19/19 11:15 EA [id number]) Palpation Assessment Location One Palpation Location left hip Palpation Findings Soft Tissue Tightness PT-OP-K Range of Motion Start: 01/05/19 14:37 Freq: Status: Active Protocol: Document 01/05/19 15:55 EA (Rec: 01/05/19 15:58 EA [id number]) Hip Goniometric Range of Motion Hip Right Active Testing Position Supine Flexion w/Knee Flexed 125 Extension 15 Internal Rotation 30 External Rotation 30 Left Active Testing Position Supine Flexion w/Knee Flexed 110 Extension 5 Internal Rotation 15 External Rotation 25 PT-OP-L Special Tests Start: 01/05/19 14:37 Freq: Status: Active Protocol: Document 01/05/19 14:39 EA (Rec: 01/05/19 15:12 EA [id number]) Special Tests Hip Special Tests PIERCE Test Results + PT-OP-M Strength Start: 01/05/19 15:57 Freq: Status: Active Protocol: Document 01/19/19 11:07 EA (Rec: 01/19/19 11:15 EA [id number]) Hip Strength Hip Manual Muscle Testing Left Flexion (L2) 3+ Fair+ Extension (S1) 4- Good- Abduction 3 Fair Adduction 4- Good- Internal Rotation 3+ Fair+ Comments MMT performed to allowed hip range due to precautions Knee Strength Knee Manual Muscle Testing Left Reason Not Measured WFL PT-OP-T Assessment and Plan Start: 01/05/19 14:37 Freq: Status: Active Protocol: Document 04/19/19 10:41 EA (Rec: 04/19/19 10:45 EA [id number]) Physical Therapy Assessment Assessment Summary Assessment Patient to discharge in PT upon request. Unclear the reason, hoever past reports shows great recovery after surgery. Physical Therapy Plan Discharge Physical Therapy Discharge Reasons Patient Request
== END 2019-04-22 09:06 | disposition home or self-care (01) ==
LOC: PHYS 09:00
PROVIDERS: PCP Family Medicine; Visit Provider Orthopaedic Surgery
DX: M16.10 Unilateral primary osteoarthritis, unspecified hip (principal)
CPT/HCPCS: 97110; 97116; 97161; 97535

== ENCOUNTER → 2019-10-28 14:58 | Outpatient (CLI) | payer MEDICARE, SELFPAY ==
[2019-10-11 12:10] VITALS: BMI 19.4
--- NOTE | 2019-10-28 15:02 | DI.MG.S_ITS ---
BILATERAL DIGITAL SCREENING MAMMOGRAM 3D/2D WITH CAD POST LUMPECTOMY: 10/28/2019 CLINICAL: Routine screening. Personal history of breast cancer. Family history of breast cancer. Comparison is made to exams dated: 09/23/2018 mammogram, 06/30/2017 mammogram, and 05/03/2015 mammogram - [facility]. The tissue of both breasts is heterogeneously dense. This may lower the sensitivity of mammography. Current study was also evaluated with a Computer Aided Detection (CAD) system. There are benign vascular calcifications in both breasts. There also are benign post operative findings in the right breast. No significant masses, calcifications, or other findings are seen in either breast. There has been no significant interval change. IMPRESSION: There is no mammographic evidence of malignancy. A 1 year screening mammogram is recommended. This exam was interpreted at Station ID: [id number]. NOTE: For mammograms, a report in lay terms will be sent to the patient. Approximately 15% of breast malignancies will not be visualized mammographically. In the management of a palpable breast mass, a negative mammogram must not discourage biopsy of a clinically suspicious lesion. Electronically Signed By: Lizett escoto/myke:10/28/2019 16:58:16 letter sent: Normal Exam ACR BI-RADS Category 2: Benign Finding(s) 3342F
== END ==
PROVIDERS: PCP Family Medicine; Referring Provider Family Medicine; Visit Provider Family Medicine
DX: Z12.31 Encounter for screening mammogram for malignant neoplasm of breast (principal); Z85.3 Personal history of malignant neoplasm of breast; Z80.3 Family history of malignant neoplasm of breast
CPT/HCPCS: 77063; 77067

== ENCOUNTER → 2020-03-05 08:59 | Outpatient (CLI) | payer MEDICARE, SELFPAY ==
[2019-10-11 12:10] VITALS: BMI 19.4
[2020-03-05 09:38] LABS: Add Manual Diff / Slide Review NO; Basophils Absolute Auto 0 /uL (0-100); Basophils Percent Auto 0.6 % (0-2); Eosinophils Absolute Auto 200 /uL (0-450); Hematocrit 39.8 % (36-46); Hemoglobin 13.7 g/dL (12.0-16.0); Lymphocytes Absolute Auto 2100 /uL (1100-4500); Lymphocytes Percent Auto 26.6 % (25-40); Mean Corpuscular HGB Conc 34.3 % (30-36); Mean Corpuscular Hemoglobin 33.1 PG (26-34); Mean Corpuscular Volume 96.5 fL (80-100); Monocytes Absolute Auto 500 /uL (0-900); Neutrophils Absolute Auto 5100 /uL (1500-7000); Neutrophils Percent Auto 64.8 % (50-75); Platelet Count 260 X10^3/uL (150-400); Red Blood Cell Count 4.12 X10^6/uL (4.0-5.2); Red Cell Distribution Width 13.4 % (11.6-14.8); White Blood Cell Count 7.8 X10^3/uL (4.5-11.0)
[2020-03-05 09:44] LABS: Alanine Aminotransferase 18 IU/L (<35); Albumin 4.6 g/dL (3.5-5.0); Alkaline Phosphatase 92 U/L (38-126); Aspartate Aminotransferase 33 IU/L (14-36); BUN Creatinine Ratio 23.9 (6-22); Bilirubin Total 0.6 mg/dL (0.2-1.3); Blood Urea Nitrogen 32 mg/dL (7-17); Calcium 9.7 mg/dL (8.4-10.2); Carbon Dioxide 30 mmol/L (22-32); Chloride 100 mmol/L (98-107); Cholesterol 206 mg/dL (140-199); Estimated Glomerular Filt Rate 38.2 mL/min (>60); Globulin 2.3 g/dL (1.7-4.1); Glucose 109 mg/dL (80-110); HDL Cholesterol 74 mg/dL (40-60); HEMOLYSIS < 15 (0-50); LDL Cholesterol Calculated 93 mg/dL (<100); Potassium 4.7 mmol/L (3.4-5.1); Sodium 137 mmol/L (137-145); Total Protein 6.9 g/dL (6.3-8.2); Triglycerides 197 mg/dL (35-150)
[2020-03-05 10:13] LABS: Thyroid Stimulating Hormone 3.03 uIU/mL (0.47-4.68)
== END ==
PROVIDERS: PCP Family Medicine; Referring Provider Family Medicine; Visit Provider Family Medicine
DX: I10 Essential (primary) hypertension (principal)
CPT/HCPCS: 36415; 80053; 80061; 84443; 85025

== ENCOUNTER → 2020-08-29 15:15 | Outpatient (CLI) | payer MEDICARE, SELFPAY ==
[2019-10-11 12:10] VITALS: BMI 19.4
--- NOTE | 2020-08-29 15:17 | DI.RAD.S_ITS ---
PROCEDURE: XR HIP W PEL IF DONE LT 2V INDICATIONS: RIGHT HIP PAIN TECHNIQUE: AP pelvis with lateral view(s) of the left hip(s). COMPARISON: [facility], [place], [id number] W PEL IF PERFORMED, 09/24/2016, 12:48. [facility] [place], [place], XR PELVIS WITH LATERAL HIP LEFT, 03/01/2019, 14:16. FINDINGS: Bones: No fractures or dislocations. Pelvic ring appears intact. No suspicious bony lesions. Lumbar spondylosis and facet arthropathy. Severe right hip joint degeneration. Left hip arthroplasty in expected alignment. Soft tissues: The visualized bowel gas pattern is normal. No suspicious soft tissue calcifications. IMPRESSION: Severe right hip joint degeneration Left hip arthroplasty in expected alignment Dictated by: Dread Duque M.D. on 08/29/2020 at 16:45 Approved by: Dread Duque M.D. on 08/29/2020 at 16:47
[2020-08-29 15:54] LABS: BUN Creatinine Ratio 22.8 (6-22); Blood Urea Nitrogen 31 mg/dL (7-17); Calcium 9.5 mg/dL (8.4-10.2); Carbon Dioxide 32 mmol/L (22-32); Chloride 102 mmol/L (98-107); Estimated Glomerular Filt Rate 37.5 mL/min (>60); Glucose 100 mg/dL (80-110); HEMOLYSIS < 15 (0-50); Potassium 4.2 mmol/L (3.4-5.1); Sodium 137 mmol/L (137-145)
[2020-08-29 16:09] LABS: Vitamin D 25 Hydroxy (D3) 80.5 ng/mL (30.0-100.0)
== END ==
PROVIDERS: PCP Student in an Organized Health Care Education/Training Program; Referring Provider Student in an Organized Health Care Education/Training Program; Visit Provider Student in an Organized Health Care Education/Training Program
DX: M25.551 Pain in right hip (principal); M16.11 Unilateral primary osteoarthritis, right hip; E55.9 Vitamin D deficiency, unspecified; I10 Essential (primary) hypertension; M85.80 Other specified disorders of bone density and structure, unspecified site; Z96.642 Presence of left artificial hip joint
CPT/HCPCS: 36415; 73502; 80048; 82306

== ENCOUNTER → 2020-09-19 10:21 | Outpatient (CLI) | payer MEDICARE, SELFPAY ==
[2019-10-11 12:10] VITALS: BMI 19.4
== END ==
PROVIDERS: PCP Student in an Organized Health Care Education/Training Program; Referring Provider Student in an Organized Health Care Education/Training Program; Visit Provider Student in an Organized Health Care Education/Training Program
DX: M81.0 Age-related osteoporosis without current pathological fracture (principal); Z78.0 Asymptomatic menopausal state; Z85.3 Personal history of malignant neoplasm of breast
CPT/HCPCS: 77080; 77081

== ENCOUNTER → 2021-01-26 10:20 | Outpatient (CLI) | payer MEDICARE, SELFPAY ==
[2019-10-11 12:10] VITALS: BMI 19.4
--- NOTE | 2021-01-26 | DI.MG.S_ITS ---
BILATERAL DIGITAL SCREENING MAMMOGRAM 3D/2D WITH CAD: 01/26/2021 CLINICAL: Routine screening. Personal history of right breast cancer. Family history of breast cancer. Comparison is made to exams dated: 10/28/2019 mammogram, 09/23/2018 mammogram, and 06/30/2017 mammogram - [facility]. The tissue of both breasts is heterogeneously dense. This may lower the sensitivity of mammography. Current study was also evaluated with a Computer Aided Detection (CAD) system. There are benign vascular calcifications in both breasts. There also are benign post operative findings in the right breast. No significant masses, calcifications, or other findings are seen in either breast. There has been no significant interval change. IMPRESSION: BENIGN There is no mammographic evidence of malignancy. A 1 year screening mammogram is recommended. This exam was interpreted at Station ID: [id number]. NOTE: For mammograms, a report in lay terms will be sent to the patient. Approximately 15% of breast malignancies will not be visualized mammographically. In the management of a palpable breast mass, a negative mammogram must not discourage biopsy of a clinically suspicious lesion. Electronically Signed By: Brayan ortiz/myke:01/28/2021 07:37:19 letter sent: Normal Exam ACR BI-RADS Category 2: Benign Finding(s) 3342F
== END ==
PROVIDERS: PCP Student in an Organized Health Care Education/Training Program; Referring Provider Student in an Organized Health Care Education/Training Program; Visit Provider Student in an Organized Health Care Education/Training Program
DX: Z12.31 Encounter for screening mammogram for malignant neoplasm of breast (principal)
CPT/HCPCS: 77063; 77067

== ENCOUNTER → 2021-12-24 13:27 | Outpatient (CLI) | payer MEDICARE, SELFPAY ==
[2019-10-11 12:10] VITALS: BMI 19.4
[2021-12-24 15:11] LABS: Hematocrit 35.1 % (36-46); Hemoglobin 12.3 g/dL (12.0-16.0); Mean Corpuscular HGB Conc 34.9 % (30-36); Mean Corpuscular Hemoglobin 32.9 PG (26-34); Mean Corpuscular Volume 94.1 fL (80-100); Platelet Count 265 X10^3/uL (150-400); Red Blood Cell Count 3.73 X10^6/uL (4.0-5.2); Red Cell Distribution Width 13.1 % (11.6-14.8); White Blood Cell Count 8.5 X10^3/uL (4.5-11.0)
[2021-12-24 16:35] LABS: Alanine Aminotransferase 15 IU/L (<35); Albumin 4.1 g/dL (3.5-5.0); Albumin Globulin Ratio 1.6 (1.0-2.8); Alkaline Phosphatase 89 U/L (38-126); Aspartate Aminotransferase 27 IU/L (14-36); BUN Creatinine Ratio 21.4 (6-22); Bilirubin Total 0.5 mg/dL (0.2-1.3); Blood Urea Nitrogen 39 mg/dL (7-17); Calcium 9.1 mg/dL (8.4-10.2); Carbon Dioxide 29 mmol/L (22-32); Chloride 99 mmol/L (98-107); Cholesterol 167 mg/dL (140-199); Estimated Glomerular Filt Rate 28 mL/min (>60); Globulin 2.6 g/dL (1.7-4.1); Glucose 108 mg/dL (80-110); HDL Cholesterol 76 mg/dL (40-60); HEMOLYSIS < 15 (0-50); LDL Cholesterol Calculated 34 mg/dL (<100); Potassium 4.5 mmol/L (3.4-5.1); Sodium 138 mmol/L (137-145); Total Protein 6.7 g/dL (6.3-8.2); Triglycerides 286 mg/dL (35-150)
== END ==
PROVIDERS: PCP Student in an Organized Health Care Education/Training Program; Referring Provider Student in an Organized Health Care Education/Training Program; Visit Provider Student in an Organized Health Care Education/Training Program
DX: E78.2 Mixed hyperlipidemia (principal); I10 Essential (primary) hypertension; Z79.899 Other long term (current) drug therapy
CPT/HCPCS: 36415; 80053; 80061; 85027

== ENCOUNTER → 2022-02-12 11:12 | Outpatient (CLI) | payer MEDICARE, SELFPAY ==
[2019-10-11 12:10] VITALS: BMI 19.4
--- NOTE | 2022-02-12 | DI.MG.S_ITS ---
BILATERAL DIGITAL SCREENING MAMMOGRAM 3D/2D WITH CAD: 02/12/2022 CLINICAL: Routine screening. Personal history of right breast cancer. Family history of breast cancer. Comparison is made to exams dated: 01/26/2021 mammogram, 10/28/2019 mammogram, and 09/23/2018 mammogram - [facility]. The tissue of both breasts is heterogeneously dense. This may lower the sensitivity of mammography. Current study was also evaluated with a Computer Aided Detection (CAD) system. There are benign vascular calcifications in both breasts. There also are benign post operative findings in the right breast. No significant masses, calcifications, or other findings are seen in either breast. There has been no significant interval change. IMPRESSION: BENIGN There is no mammographic evidence of malignancy. A 1 year screening mammogram is recommended. This exam was interpreted at Station ID: [id number]. NOTE: For mammograms, a report in lay terms will be sent to the patient. Approximately 15% of breast malignancies will not be visualized mammographically. In the management of a palpable breast mass, a negative mammogram must not discourage biopsy of a clinically suspicious lesion. Electronically Signed By: Nicholas whipple/myke:02/12/2022 13:12:54 letter sent: Normal Exam ACR BI-RADS Category 2: Benign Finding(s) 3342F
== END ==
PROVIDERS: PCP Student in an Organized Health Care Education/Training Program; Referring Provider Student in an Organized Health Care Education/Training Program; Visit Provider Student in an Organized Health Care Education/Training Program
DX: Z12.31 Encounter for screening mammogram for malignant neoplasm of breast (principal); Z80.3 Family history of malignant neoplasm of breast; Z85.3 Personal history of malignant neoplasm of breast
CPT/HCPCS: 77063; 77067

== ENCOUNTER → 2022-03-14 13:18 | Outpatient (CLI) | payer MEDICARE, SELFPAY ==
[2019-10-11 12:10] VITALS: BMI 19.4
[2022-03-14 13:40] LABS: Add Manual Diff / Slide Review NO; Basophils Absolute Auto 0 /uL (0-100); Basophils Percent Auto 0.5 % (0-2); Eosinophils Absolute Auto 200 /uL (0-450); Eosinophils Percent Auto 2.2 % (2-4); Hematocrit 35.7 % (36-46); Hemoglobin 12.2 g/dL (12.0-16.0); Lymphocytes Absolute Auto 2100 /uL (1100-4500); Lymphocytes Percent Auto 30.7 % (25-40); Mean Corpuscular HGB Conc 34.1 % (30-36); Mean Corpuscular Hemoglobin 32.3 PG (26-34); Mean Corpuscular Volume 94.7 fL (80-100); Monocytes Absolute Auto 500 /uL (0-900); Monocytes Percent Auto 6.6 % (3-14); Neutrophils Absolute Auto 4100 /uL (1500-7000); Platelet Count 253 X10^3/uL (150-400); Red Blood Cell Count 3.77 X10^6/uL (4.0-5.2); Red Cell Distribution Width 13.2 % (11.6-14.8); White Blood Cell Count 6.9 X10^3/uL (4.5-11.0)
[2022-03-14 13:50] LABS: Appearance Urine UA CLEAR; Bilirubin Urine UA NEGATIVE (NEGATIVE); Color Urine UA YELLOW; Glucose Urine UA TRACE g/dL (Negative); Ketones Urine UA NEGATIVE (NEGATIVE); Leukocyte Esterase Urine UA NEGATIVE (NEGATIVE); Nitrite Urine UA NEGATIVE (Negative); Occult Blood Urine UA TRACE-INTACT (Negative); Protein Urine UA NEGATIVE (Negative); Specific Gravity Urine UA <=1.005 (1.000-1.035); Urobilinogen Urine UA 0.2 E.U./dL (0.2)
[2022-03-14 13:54] LABS: BUN Creatinine Ratio 19.2 (6-22); Blood Urea Nitrogen 32 mg/dL (7-17); Calcium 9.2 mg/dL (8.4-10.2); Carbon Dioxide 32 mmol/L (22-32); Chloride 96 mmol/L (98-107); Estimated Glomerular Filt Rate 31 mL/min (>60); Glucose 127 mg/dL (80-110); HEMOLYSIS < 15 (0-50); Potassium 4.8 mmol/L (3.4-5.1); Sodium 133 mmol/L (137-145)
[2022-03-14 14:21] LABS: RBC Urine 0-1/HPF (0-5/HPF); Squamous Epithelial Cell Urine 0-1 /HPF (0-5/HPF); WBC Urine 0-1/HPF (0-5/HPF); pH Urine UA 6.5 (4.5-8.0)
[2022-03-14 14:22] LABS: Bacteria Urine None Seen; Culture Indicated Urine Cult Not Indicated
[2022-03-14 14:33] LABS: Creatinine Urine Random 79.8 mg/dL; Protein (Total) Urine Random 8 mg/dL (0-12)
[2022-03-14 14:40] LABS: Microalbumin Urine Random < 0.6 mg/dL (0-1.6)
== END ==
PROVIDERS: PCP Student in an Organized Health Care Education/Training Program; Referring Provider Internal Medicine Nephrology; Visit Provider Internal Medicine Nephrology
DX: N18.32 Chronic kidney disease, stage 3b (principal)
CPT/HCPCS: 36415; 80048; 81001; 82043; 82570; 84156; 85025

== ENCOUNTER → 2022-03-28 13:48 | Outpatient (CLI) | payer MEDICARE, SELFPAY ==
[2019-10-11 12:10] VITALS: BMI 19.4
--- NOTE | 2022-03-28 | DI.US.S_ITS ---
PROCEDURE: US RENAL COMPLETE INDICATIONS: Chronic kidney disease, stage 3b TECHNIQUE: Real-time scanning was performed of the kidneys and bladder, with image documentation. COMPARISON: None. FINDINGS: Kidneys: Kidneys are normal in size. Right kidney measures 9.3 cm long; left kidney measures 9.2 cm long. Right renal cortical thickness is 1.4 cm; left renal cortical thickness is 1.4 cm. Kidneys are slightly echogenic.. No hydronephrosis or nephrolithiasis. No suspicious solid mass lesions. Multiple bilateral simple renal cysts. Bladder: Pre-void bladder volume is 160 mL. Post-void residual is 0 mL. Pre-void images demonstrate no intraluminal masses or stones. On pre-void images, neither the right nor the left ureteral jets are noted with color Doppler interrogation. (Of note, ureteral jets may not be detectable in up to 25% of cases due to insufficient differences in specific gravity between ureteral and bladder urine). Miscellaneous: No free pelvic fluid. IMPRESSION: 1. Slightly echogenic kidneys compatible with chronic kidney disease. 2. No hydronephrosis. 3. Multiple bilateral simple renal cysts. Dictated by: Domonique Tolentino MD, PhD on 03/28/2022 at 16:15 Approved by: Domonique Tolentino MD, PhD on 03/28/2022 at 16:17
== END ==
PROVIDERS: PCP Student in an Organized Health Care Education/Training Program; Referring Provider Internal Medicine Nephrology; Visit Provider Internal Medicine Nephrology
DX: N18.32 Chronic kidney disease, stage 3b (principal); N28.1 Cyst of kidney, acquired
CPT/HCPCS: 76770

== ENCOUNTER → 2022-04-16 13:15 | Outpatient (CLI) | payer MEDICARE, SELFPAY ==
[2019-10-11 12:10] VITALS: BMI 19.4
[2022-04-16 13:56] LABS: Appearance Urine UA CLEAR; Bilirubin Urine UA NEGATIVE (NEGATIVE); Color Urine UA YELLOW; Glucose Urine UA NEGATIVE (Negative); Ketones Urine UA NEGATIVE (NEGATIVE); Leukocyte Esterase Urine UA TRACE (NEGATIVE); Nitrite Urine UA NEGATIVE (Negative); Occult Blood Urine UA TRACE-INTACT (Negative); Protein Urine UA NEGATIVE (Negative); Specific Gravity Urine UA <=1.005 (1.000-1.035); Urobilinogen Urine UA 0.2 E.U./dL (0.2)
[2022-04-16 14:01] LABS: Add Manual Diff / Slide Review NO; Basophils Absolute Auto 0 /uL (0-100); Basophils Percent Auto 0.7 % (0-2); Eosinophils Absolute Auto 100 /uL (0-450); Eosinophils Percent Auto 1.9 % (2-4); Hematocrit 34.4 % (36-46); Hemoglobin 12.1 g/dL (12.0-16.0); Lymphocytes Absolute Auto 1500 /uL (1100-4500); Mean Corpuscular HGB Conc 35.2 % (30-36); Mean Corpuscular Hemoglobin 32.8 PG (26-34); Mean Corpuscular Volume 93.2 fL (80-100); Monocytes Absolute Auto 400 /uL (0-900); Monocytes Percent Auto 6.2 % (3-14); Neutrophils Absolute Auto 4200 /uL (1500-7000); Neutrophils Percent Auto 67.2 % (50-75); Platelet Count 255 X10^3/uL (150-400); Red Blood Cell Count 3.69 X10^6/uL (4.0-5.2); Red Cell Distribution Width 13.3 % (11.6-14.8); White Blood Cell Count 6.2 X10^3/uL (4.5-11.0)
[2022-04-16 14:05] LABS: Amorphous Sediment Urine 1+; Bacteria Urine Occasional (0-1); Culture Indicated Urine Specimen Cultured; RBC Urine 0-1/HPF (0-5/HPF); WBC Urine 0-1/HPF (0-5/HPF)
[2022-04-16 14:29] LABS: BUN Creatinine Ratio 17.9 (6-22); Blood Urea Nitrogen 37 mg/dL (7-17); Calcium 8.8 mg/dL (8.4-10.2); Carbon Dioxide 28 mmol/L (22-32); Chloride 96 mmol/L (98-107); Estimated Glomerular Filt Rate 24 mL/min (>60); Glucose 124 mg/dL (80-110); HEMOLYSIS < 15 (0-50); Magnesium 2.1 mg/dL (1.6-2.3); Phosphorous 4.1 mg/dL (2.8-4.1); Potassium 4.8 mmol/L (3.4-5.1); Sodium 132 mmol/L (137-145); Uric Acid 5.8 mg/dL (2.5-6.2)
[2022-04-16 16:09] LABS: Creatinine Urine Random 83.6 mg/dL
[2022-04-16 16:19] LABS: Microalbumin Urine Random < 0.6 mg/dL (0-1.6)
[2022-04-17 08:09] LABS: Parathyroid Hormone Int 51 pg/mL (15-65)
== END ==
PROVIDERS: PCP Student in an Organized Health Care Education/Training Program; Referring Provider Internal Medicine Nephrology; Visit Provider Internal Medicine Nephrology
DX: N18.32 Chronic kidney disease, stage 3b (principal)
CPT/HCPCS: 36415; 80048; 81001; 82043; 82306; 82570; 83735; 83970; 84100; 84550; 85025; 87086

== ENCOUNTER → 2022-04-22 12:53 | Outpatient (CLI) | payer MEDICARE, SELFPAY ==
[2019-10-11 12:10] VITALS: BMI 19.4
[2022-04-22 14:55] LABS: BUN Creatinine Ratio 18.1 (6-22); Blood Urea Nitrogen 32 mg/dL (7-17); Calcium 9.1 mg/dL (8.4-10.2); Carbon Dioxide 28 mmol/L (22-32); Chloride 99 mmol/L (98-107); Estimated Glomerular Filt Rate 29 mL/min (>60); Glucose 115 mg/dL (80-110); HEMOLYSIS < 15 (0-50); Potassium 4.4 mmol/L (3.4-5.1); Sodium 134 mmol/L (137-145)
== END ==
PROVIDERS: PCP Student in an Organized Health Care Education/Training Program; Referring Provider Internal Medicine Nephrology; Visit Provider Internal Medicine Nephrology
DX: N17.9 Acute kidney failure, unspecified (principal)
CPT/HCPCS: 36415; 80048

== ENCOUNTER → 2022-05-27 09:03 | Outpatient (CLI) | payer MEDICARE, SELFPAY ==
[2019-10-11 12:10] VITALS: BMI 19.4
[2022-05-27 10:21] LABS: BUN Creatinine Ratio 15.3 (6-22); Blood Urea Nitrogen 27 mg/dL (7-17); Calcium 8.9 mg/dL (8.4-10.2); Carbon Dioxide 30 mmol/L (22-32); Chloride 98 mmol/L (98-107); Estimated Glomerular Filt Rate 29 mL/min (>60); Glucose 87 mg/dL (80-110); HEMOLYSIS < 15 (0-50); Potassium 4.6 mmol/L (3.4-5.1); Sodium 137 mmol/L (137-145)
[2022-05-27 10:47] LABS: Cortisol AM (Before 10AM) 11.2 ug/dL (4.46-22.7)
[2022-05-27 10:58] LABS: TSH w/ Reflex to FT4 3.47 uIU/mL (0.47-4.68)
[2022-05-27 14:58] LABS: Sodium Urine Random 22 mmol/L (30-90)
[2022-05-28 14:16] LABS: Osmolality Urine 241 mOsmol/kg (.); Osmolality, Serum 294 mOsmol/kg (280-301)
== END ==
PROVIDERS: PCP Student in an Organized Health Care Education/Training Program; Referring Provider Internal Medicine Nephrology; Visit Provider Internal Medicine Nephrology
DX: E87.1 Hypo-osmolality and hyponatremia (principal); N18.32 Chronic kidney disease, stage 3b
CPT/HCPCS: 36415; 80048; 82533; 83930; 83935; 84300; 84443

== ENCOUNTER → 2022-08-29 12:14 | Outpatient (CLI) | payer MEDICARE, SELFPAY ==
[2019-10-11 12:10] VITALS: BMI 19.4
[2022-08-29 14:18] LABS: BUN Creatinine Ratio 23.3 (6-22); Blood Urea Nitrogen 40 mg/dL (7-17); Calcium 8.9 mg/dL (8.4-10.2); Carbon Dioxide 31 mmol/L (22-32); Chloride 97 mmol/L (98-107); Estimated Glomerular Filt Rate 30 mL/min (>60); Glucose 100 mg/dL (80-110); HEMOLYSIS < 15 (0-50); Phosphorous 3.8 mg/dL (2.8-4.1); Potassium 4.2 mmol/L (3.4-5.1); Sodium 136 mmol/L (137-145)
[2022-08-29 15:52] LABS: Creatinine Urine Random 47.9 mg/dL
[2022-08-29 16:47] LABS: Microalbumin Urine Random < 0.6 mg/dL (0-1.6)
[2022-08-29 17:35] LABS: Vitamin D 25 Hydroxy (D3) 72.6 ng/mL (30.0-100.0)
[2022-08-31 11:48] LABS: Parathyroid Hormone Int 22 pg/mL (15-65)
== END ==
PROVIDERS: PCP Student in an Organized Health Care Education/Training Program; Referring Provider Internal Medicine Nephrology; Visit Provider Internal Medicine Nephrology
DX: N18.32 Chronic kidney disease, stage 3b (principal)
CPT/HCPCS: 36415; 80048; 82043; 82306; 82570; 83970; 84100

== ENCOUNTER → 2022-09-26 14:03 | Outpatient (CLI) | payer MEDICARE, SELFPAY ==
[2019-10-11 12:10] VITALS: BMI 19.4
[2022-09-26 15:08] LABS: BUN Creatinine Ratio 22.6 (6-22); Blood Urea Nitrogen 45 mg/dL (7-17); Carbon Dioxide 29 mmol/L (22-32); Chloride 99 mmol/L (98-107); Estimated Glomerular Filt Rate 25 mL/min (>60); Glucose 98 mg/dL (80-110); HEMOLYSIS < 15 (0-50); Magnesium 2.2 mg/dL (1.6-2.3); Potassium 4.5 mmol/L (3.4-5.1); Sodium 137 mmol/L (137-145)
== END ==
PROVIDERS: PCP Student in an Organized Health Care Education/Training Program; Referring Provider Internal Medicine Nephrology; Visit Provider Internal Medicine Nephrology
DX: I13.10 Hypertensive heart and chronic kidney disease without heart failure, with stage 1 through stage 4 chronic kidney disease, or unspecified chronic kidney disease (principal)
CPT/HCPCS: 36415; 80048; 83735

== ENCOUNTER → 2022-10-24 10:15 | Outpatient (CLI) | payer MEDICARE, SELFPAY ==
[2019-10-11 12:10] VITALS: BMI 19.4
[2022-10-24 11:25] LABS: BUN Creatinine Ratio 18.9 (6-22); Blood Urea Nitrogen 34 mg/dL (7-17); Calcium 8.6 mg/dL (8.4-10.2); Carbon Dioxide 32 mmol/L (22-32); Chloride 99 mmol/L (98-107); Estimated Glomerular Filt Rate 28 mL/min (>60); Glucose 100 mg/dL (80-110); HEMOLYSIS < 15 (0-50); Potassium 4.6 mmol/L (3.4-5.1); Sodium 137 mmol/L (137-145)
== END ==
PROVIDERS: PCP Student in an Organized Health Care Education/Training Program; Referring Provider Internal Medicine Nephrology; Visit Provider Internal Medicine Nephrology
DX: N17.9 Acute kidney failure, unspecified (principal)
CPT/HCPCS: 36415; 80048

== ENCOUNTER → 2022-11-06 12:45 | Outpatient (CLI) | payer MEDICARE, SELFPAY ==
[2019-10-11 12:10] VITALS: BMI 19.4
--- NOTE | 2022-11-06 12:54 | DI.DEXA.S_ITS ---
Indication: osteopenia; Referring Provider: HAWK BARRETT Study: Bone densitometry was performed. Exam Date: November 06, 2022 Accession number: [id number] Bone Density: Region BMD T-score Z-score Classification AP Spine(L1, L2) 0.819 -1.5 1.1 Osteopenia Femoral Neck (Right) 0.742 -1.0 1.4 Normal Total Hip (Right) 0.728 -1.8 0.4 Osteopenia Total Forearm (Left) 0.492 -1.6 1.6 Osteopenia 1/3 Forearm (Left) 0.577 -1.9 1.4 Osteopenia UD Forearm (Left) 0.348 -1.6 0.8 Osteopenia World Health Organization criteria for BMD impression classify patients as: Normal (T-score at or above -1.0), Osteopenia (T-score between -1.0 and -2.5), or Osteoporosis (T-score at or below -2.5). 10-year Fracture Risk(1): Major Osteoporotic Fracture 10% Hip Fracture 2.3% Reported Risk Factors: [place] (), Neck BMD=0.742, BMI=21.6 (1) FRAX(R) Version 3.08. Fracture probability calculated for an untreated patient. Fracture probability may be lower if the patient has received treatment. Previous Exams: -- Region Exam Age BMD T-score BMD Change BMD Change Date g/cm2 vs Baseline vs Previous -- AP Spine (L1-L2) 11/06/2022 82 0.819 -1.5 0.037 (4.8%)# 0.037 (4.8%)# 09/19/2020 80 0.782 -1.8 Total Hip(Right) 11/06/2022 82 0.728 -1.8 -0.005 (-0.7%)# -0.005 (-0.7%)# 09/19/2020 80 0.733 -1.7 -- *Denotes significance at 95% confidence level, LSC for AP Spine = 0.022 g/cm2, LSC for Total Hip = 0.027 g/cm2 # Denotes dissimilar scan types or analysis methods Impression: The patient has low bone mass, based on the Right Total Hip T-score. The patient has an estimated ten-year risk of hip fracture of 2.3% and an estimated ten-year risk of major fracture of 10%, based on the WHO FRAX algorithm. No significant bone loss was observed. Discussion: BONE DENSITY IS LOW AT ONE OR MORE SKELETAL SITES. This patient's lowest T-score is low at one or more skeletal sites. It meets the World Health Organization's (WHO) criteria for ?low bone mass? (T-score between -1.0 and -2.5). The patient's 10-year risk of fracture as calculated by FRAX is less than the threshold where pharmacological therapy is recommended by the National Osteoporosis Foundation (NOF). However, all treatment decisions require clinical judgment and consideration of individual patient factors, including patient preferences, comorbidities, previous drug use, risk factors not captured in the FRAX model (e.g., frailty, falls, vitamin D deficiency, increased bone turnover, interval significant decline in bone density) and possible under or overestimation of fracture risk by FRAX. The patient should follow a healthful lifestyle (good nutrition with adequate calcium and vitamin D, and appropriate weight-bearing exercise). Follow-Up: Consider repeating this study in 2 to 3 years to reassess this patient's status, or sooner if there is some new clinical indication. Reported by: LUCA BEAR M.D on 11/06/2022 1:06:00 PM.
== END ==
PROVIDERS: PCP Student in an Organized Health Care Education/Training Program; Referring Provider Student in an Organized Health Care Education/Training Program; Visit Provider Student in an Organized Health Care Education/Training Program
DX: Z78.0 Asymptomatic menopausal state (principal); M85.851 Other specified disorders of bone density and structure, right thigh
CPT/HCPCS: 77080; 77081

== ENCOUNTER → 2023-01-02 12:08 | Outpatient (CLI) | payer MEDICARE, SELFPAY ==
[2019-10-11 12:10] VITALS: BMI 19.4
[2023-01-02 13:29] LABS: Add Manual Diff / Slide Review NO; Basophils Absolute Auto 0 /uL (0-100); Basophils Percent Auto 0.5 % (0-2); Eosinophils Absolute Auto 100 /uL (0-450); Eosinophils Percent Auto 2.7 % (2-4); Hematocrit 34.9 % (36-46); Lymphocytes Absolute Auto 1400 /uL (1100-4500); Lymphocytes Percent Auto 25.5 % (25-40); Mean Corpuscular HGB Conc 34.5 % (30-36); Mean Corpuscular Volume 95.8 fL (80-100); Monocytes Absolute Auto 400 /uL (0-900); Monocytes Percent Auto 6.7 % (3-14); Neutrophils Absolute Auto 3600 /uL (1500-7000); Neutrophils Percent Auto 64.6 % (50-75); Platelet Count 213 X10^3/uL (150-400); Red Blood Cell Count 3.65 X10^6/uL (4.0-5.2); Red Cell Distribution Width 13.6 % (11.6-14.8); White Blood Cell Count 5.5 X10^3/uL (4.5-11.0)
[2023-01-02 13:54] LABS: BUN Creatinine Ratio 18.8 (6-22); Blood Urea Nitrogen 35 mg/dL (7-17); Calcium 8.8 mg/dL (8.4-10.2); Carbon Dioxide 28 mmol/L (22-32); Chloride 98 mmol/L (98-107); Estimated Glomerular Filt Rate 27 mL/min (>60); Glucose 126 mg/dL (80-110); HEMOLYSIS < 15 (0-50); Potassium 4.2 mmol/L (3.4-5.1); Sodium 134 mmol/L (137-145)
[2023-01-02 14:09] LABS: Creatinine Urine Random 62.9 mg/dL
[2023-01-02 14:26] LABS: Microalbumin Urine Random < 0.6 mg/dL (0-1.6)
== END ==
PROVIDERS: PCP Student in an Organized Health Care Education/Training Program; Referring Provider Internal Medicine Nephrology; Visit Provider Internal Medicine Nephrology
DX: N18.32 Chronic kidney disease, stage 3b (principal); N17.9 Acute kidney failure, unspecified
CPT/HCPCS: 36415; 80048; 82043; 82570; 85025

== ENCOUNTER → 2023-01-29 13:02 | Outpatient (CLI) | payer MEDICARE, SELFPAY ==
[2019-10-11 12:10] VITALS: BMI 19.4
[2023-01-29 15:13] LABS: BUN Creatinine Ratio 23.1 (6-22); Blood Urea Nitrogen 45 mg/dL (7-17); Calcium 9.3 mg/dL (8.4-10.2); Carbon Dioxide 32 mmol/L (22-32); Chloride 96 mmol/L (98-107); Estimated Glomerular Filt Rate 25 mL/min (>60); Glucose 132 mg/dL (80-110); HEMOLYSIS < 15 (0-50); Potassium 4.4 mmol/L (3.4-5.1); Sodium 135 mmol/L (137-145)
== END ==
PROVIDERS: PCP Pediatrics; Referring Provider Internal Medicine Nephrology; Visit Provider Internal Medicine Nephrology
DX: N18.32 Chronic kidney disease, stage 3b (principal)
CPT/HCPCS: 36415; 80048; 82043; 82570

== ENCOUNTER → 2023-03-09 09:16 | Outpatient (CLI) | payer MEDICARE, SELFPAY ==
[2019-10-11 12:10] VITALS: BMI 19.4
--- NOTE | 2023-03-09 | DI.MG.S_ITS ---
BILATERAL DIGITAL SCREENING MAMMOGRAM 3D/2D WITH CAD: 03/09/2023 CLINICAL: Routine screening. Personal history of right breast cancer. Family history of breast cancer. Comparison is made to exams dated: 02/12/2022 mammogram, 01/26/2021 mammogram, 10/28/2019 mammogram, 09/23/2018 mammogram, 06/30/2017 mammogram, and 05/03/2015 mammogram - [facility]. Both breasts are heterogeneously dense, which may obscure small masses (category c / 51-75% glandular tissue). Current study was also evaluated with a Computer Aided Detection (CAD) system. There are benign vascular calcifications in both breasts. There also are benign post operative findings in the right breast. No significant masses, calcifications, or other findings are seen in either breast. There has been no significant interval change. IMPRESSION: BENIGN There is no mammographic evidence of malignancy. A 1 year screening mammogram is recommended. This exam was interpreted at Station ID: [id number]. NOTE: For mammograms, a report in lay terms will be sent to the patient. Approximately 15% of breast malignancies will not be visualized mammographically. In the management of a palpable breast mass, a negative mammogram must not discourage biopsy of a clinically suspicious lesion. Electronically Signed By: Floyd robert/myke:03/09/2023 10:11:05 letter sent: Normal Exam ACR BI-RADS Category 2: Benign Finding(s) 3342F
== END ==
PROVIDERS: PCP Pediatrics; Referring Provider Pediatrics; Visit Provider Pediatrics
DX: Z12.31 Encounter for screening mammogram for malignant neoplasm of breast (principal); Z85.3 Personal history of malignant neoplasm of breast; Z80.3 Family history of malignant neoplasm of breast
CPT/HCPCS: 77063; 77067

== ENCOUNTER → 2023-05-29 13:37 | Outpatient (CLI) | payer MEDICARE, SELFPAY ==
[2019-10-11 12:10] VITALS: BMI 19.4
[2023-05-29 14:50] LABS: Add Manual Diff / Slide Review NO; Basophils Absolute Auto 0 /uL (0-100); Basophils Percent Auto 0.4 % (0-2); Eosinophils Absolute Auto 100 /uL (0-450); Eosinophils Percent Auto 2.4 % (2-4); Hematocrit 34.8 % (36-46); Hemoglobin 11.9 g/dL (12.0-16.0); Lymphocytes Absolute Auto 1400 /uL (1100-4500); Lymphocytes Percent Auto 26.6 % (25-40); Mean Corpuscular HGB Conc 34.2 % (30-36); Mean Corpuscular Hemoglobin 33.1 PG (26-34); Mean Corpuscular Volume 96.6 fL (80-100); Monocytes Absolute Auto 400 /uL (0-900); Neutrophils Absolute Auto 3300 /uL (1500-7000); Neutrophils Percent Auto 63.6 % (50-75); Platelet Count 199 X10^3/uL (150-400); Red Cell Distribution Width 13.2 % (11.6-14.8); White Blood Cell Count 5.1 X10^3/uL (4.5-11.0)
[2023-05-29 15:17] LABS: Albumin 3.9 g/dL (3.5-5.0); BUN Creatinine Ratio 18.4 (6-22); Blood Urea Nitrogen 36 mg/dL (7-17); Calcium 9.3 mg/dL (8.4-10.2); Carbon Dioxide 30 mmol/L (22-32); Chloride 100 mmol/L (98-107); Estimated Glomerular Filt Rate 25 mL/min (>60); Glucose 90 mg/dL (80-110); HEMOLYSIS < 15 (0-50); Magnesium 1.9 mg/dL (1.6-2.3); Phosphorous 4.3 mg/dL (2.8-4.1); Potassium 4.5 mmol/L (3.4-5.1); Sodium 137 mmol/L (137-145)
[2023-05-29 16:26] LABS: Vitamin D 25 Hydroxy (D3) 66.1 ng/mL (30.0-100.0)
[2023-05-30 11:23] LABS: Parathyroid Hormone Int 31 pg/mL (15-65)
== END ==
PROVIDERS: PCP Pediatrics; Referring Provider Internal Medicine Nephrology; Visit Provider Internal Medicine Nephrology
DX: N18.4 Chronic kidney disease, stage 4 (severe) (principal)
CPT/HCPCS: 36415; 80048; 82040; 82306; 83735; 83970; 84100; 85025

== ENCOUNTER → 2023-06-26 12:47 | Outpatient (CLI) | payer MEDICARE, SELFPAY ==
[2019-10-11 12:10] VITALS: BMI 19.4
--- NOTE | 2023-06-26 12:49 | DI.RAD.S_ITS ---
PROCEDURE: XR CHEST 2V INDICATIONS: Shortness of Breath TECHNIQUE: 2 views of the chest were acquired. COMPARISON: None. FINDINGS: Surgical changes and devices: Surgical clips in the right axilla. Possible right mastectomy. Lungs and pleura: Hyperlucent lungs. No dense consolidation, effusion, or pneumothorax. Mediastinum: Borderline cardiomegaly. Right cardiac border is accentuated by pectus excavatum deformity. Mild cephalization of central vessels. Normal aortic contour. Bones and chest wall: No suspicious bony abnormalities. Soft tissues appear unremarkable. IMPRESSION: 1. Borderline cardiomegaly with slight central vascular cephalization. Correlate with BNP as there may be early CHF. 2. No pulmonary opacity visible. Dictated by: Lizett Harden M.D. on 06/26/2023 at 16:24 Approved by: Lizett Harden M.D. on 06/26/2023 at 16:28
== END ==
PROVIDERS: PCP Student in an Organized Health Care Education/Training Program; Referring Provider Student in an Organized Health Care Education/Training Program; Visit Provider Student in an Organized Health Care Education/Training Program
DX: R06.02 Shortness of breath (principal)
CPT/HCPCS: 71046

== ENCOUNTER → 2023-07-06 07:02 | Outpatient (CLI) | payer MEDICARE, SELFPAY ==
[2019-10-11 12:10] VITALS: BMI 19.4
--- NOTE | 2023-07-06 07:04 | DI.ECHO.S_ITS ---
[place] [facility]---------+ [facility] +---------+ : : [address] : : : : [id number] : : : : Phone: [phone]+ Echocardiogram Report + + :Name: LATESHA BOSE Study Date: 07/06/2023 Height: 65 in : :[facility] ReadingLocation: Weight: 130 lb : : Gender: Female BSA: 1.6 m2 : :: 1940 Age: 82 yrs BP: 160/71 mmHg: :Reason For Study: CARDIOMEGALY, X-RAY FOLLOW UP : :Ordering Physician: IRVIN, : :ANN MARIE Padilla Performed By: Ivette Lopes : :Referring: ANN MARIE BRYAN MD : + + Interpretation Summary The left ventricle is normal in size and wall thickness. The ejection fraction is estimated to be 60-65%. The left atrium is mildly dilated. There is mild mitral regurgitation. There is moderate aortic regurgitation. There is moderate to severe tricuspid regurgitation. The right ventricular systolic pressure is estimated to be at least 56 mmHg based on an estimated right atrial pressure of 8 mm Hg. Procedure: A two-dimensional transthoracic echocardiogram with color flow and Doppler was performed. The study quality was technically adequate. There is no prior echocardiogram noted for this patient. The patient was in sinus rhythm with heart rates between 64-71 bpm during the exam. Left Ventricle: The left ventricle is normal in size and wall thickness. The ejection fraction is estimated to be 60-65%. There are no focal wall motion abnormalities. Diastolic function could not be accurately assessed due to confounding valvular disease. Right Ventricle: The right ventricle is normal in size and function. A moderator band is seen in the right ventricle. Atria: The left atrium is mildly dilated. Right atrial size is normal. There is no Doppler evidence for an interatrial shunt. Mitral Valve: The mitral valve leaflets appear mildly thickened, but open well. There is mild mitral regurgitation. Aortic Valve: The aortic valve is trileaflet. The aortic valve opens well. There is no aortic valve stenosis. There is moderate aortic regurgitation. Tricuspid Valve: The tricuspid valve leaflets are thin and pliable. There is moderate to severe tricuspid regurgitation. The right ventricular systolic pressure is estimated to be at least 56 mmHg based on an estimated right atrial pressure of 8 mm Hg. Pulmonic Valve: The pulmonic valve leaflets are thin and pliable; valve motion is normal. There is mild pulmonic regurgitation. Great Vessels: The aortic root is normal size. The dimensions of the ascending aorta are normal. The IVC is dilated (diameter is greater than 2.1 cm) yet it collapses greater than 50% with a sniff. This suggests a right atrial pressure of 8 mm Hg. Pericardium/ Pleura There is no pericardial effusion. There is no pleural effusion. MMode/2D Measurements & Calculations LVIDd: 4.5 cm LVOT diam: 1.9 cm LVIDs: 3.4 cm Ao root diam: 3.0 cm FS: 25.0 % asc Aorta Diam: 3.1 cm EPSS: 0.44 cm Ao Arch Diam (Prox Trans): 2.5 cm IVSd: 0.79 cm LVPWd: 0.81 cm LV marino. diameter/BSA (cm/m^2): 2.8 LV sys. diameter/BSA (cm/m^2): 2.1 LA A2 area: 20.0 cm2 RA long axis: 5.1 cm LA A4 area: 18.8 cm2 RA area: 14.6 cm2 LA length (vol): 5.7 cm RA vol: 35.5 ml LA vol: 56.2 ml RA : 21.6 ml/m2 LA vol index: 34.1 ml/m2 IVC diam: 2.1 cm RVD1 (basal): 2.6 cm RVD2 (mid): 2.0 cm TAPSE: 1.8 cm Doppler Measurements & Calculations Ao V2 max: 123.1 cm/sec LVOT Max Jorge Luis: 81.3 cm/sec Ao V2 mean: 92.4 cm/sec LV V1 max P.6 mmHg Ao max P.1 mmHg LV V1 VTI: 17.6 cm Ao mean P.6 mmHg ISAC(I,D): 1.7 cm2 Ao V2 VTI: 28.5 cm ISAC(V,D): 1.8 cm2 sev ratio: 0.62 ISAC indexed to BSA (cm^2/m^2): 1.0 AI P1/2t: 323.0 msec AI dec slope: 329.8 cm/sec2 MV E max jorge luis: 115.7 cm/sec TR max jorge luis: 346.7 cm/sec MV A max jorge luis: 56.4 cm/sec TR max P.1 mmHg MV E/A: 2.1 PA V2 max: 77.2 cm/sec Med Peak E' Jorge Luis: 6.2 cm/sec PA V2 mean: 52.8 cm/sec E/E' med: 18.5 PA mean P.2 mmHg Lat Peak E' Jorge Luis: 8.6 cm/sec PA pr(Accel): 34.5 mmHg E/E' lat: 13.4 E/e' average: 16.0 MV dec time: 0.22 sec SV(LVOT): 47.8 ml Electronically signed by: Chirag Joiner on Reading Physician:07/06/2023 08:41 AM
== END ==
LOC: ECHO 07:03
PROVIDERS: PCP Student in an Organized Health Care Education/Training Program; Referring Provider Student in an Organized Health Care Education/Training Program; Visit Provider Student in an Organized Health Care Education/Training Program
DX: I08.3 Combined rheumatic disorders of mitral, aortic and tricuspid valves (principal); R06.02 Shortness of breath
CPT/HCPCS: 93306

== ENCOUNTER → 2023-11-14 08:08 | Outpatient (CLI) | payer MEDICARE, SELFPAY ==
[2019-10-11 12:10] VITALS: BMI 19.4
[2023-11-14 10:06] LABS: Hemoglobin A1C% w Est Avg Glu 5.6 % (4.0-6.0)
[2023-11-14 10:10] LABS: Alanine Aminotransferase 22 IU/L (<35); Albumin 3.9 g/dL (3.5-5.0); Albumin Globulin Ratio 1.5 (1.0-2.8); Alkaline Phosphatase 85 U/L (38-126); Aspartate Aminotransferase 30 IU/L (14-36); BUN Creatinine Ratio 19.2 (6-22); Bilirubin Total 0.7 mg/dL (0.2-1.3); Blood Urea Nitrogen 37 mg/dL (7-17); Calcium 9.1 mg/dL (8.4-10.2); Carbon Dioxide 34 mmol/L (22-32); Chloride 96 mmol/L (98-107); Cholesterol 142 mg/dL (140-199); Estimated Glomerular Filt Rate 25 mL/min (>60); Globulin 2.6 g/dL (1.7-4.1); Glucose 103 mg/dL (80-110); HDL Cholesterol 59 mg/dL (40-60); HEMOLYSIS < 15 (0-50); LDL Cholesterol Calculated 64 mg/dL (<100); Potassium 5.2 mmol/L (3.4-5.1); Sodium 133 mmol/L (137-145); Total Protein 6.5 g/dL (6.3-8.2); Triglycerides 95 mg/dL (35-150)
[2023-11-14 10:16] LABS: Free T4, Direct Thyroxine 1.21 ng/dL (0.78-2.19)
[2023-11-14 10:30] LABS: Thyroid Stimulating Hormone 3.28 uIU/mL (0.47-4.68)
== END ==
PROVIDERS: PCP Student in an Organized Health Care Education/Training Program; Referring Provider Internal Medicine Cardiovascular Disease; Visit Provider Internal Medicine Cardiovascular Disease
DX: I10 Essential (primary) hypertension (principal); E78.5 Hyperlipidemia, unspecified; Z13.1 Encounter for screening for diabetes mellitus
CPT/HCPCS: 36415; 80053; 80061; 83036; 84439; 84443

== ENCOUNTER → 2023-12-03 11:16 | Outpatient (CLI) | payer MEDICARE, SELFPAY ==
[2019-10-11 12:10] VITALS: BMI 19.4
[2023-12-03 12:01] LABS: Add Manual Diff / Slide Review NO; Basophils Absolute Auto 0 /uL (0-100); Basophils Percent Auto 0.5 % (0-2); Eosinophils Absolute Auto 200 /uL (0-450); Eosinophils Percent Auto 2.6 % (2-4); Hematocrit 36.7 % (36-46); Hemoglobin 12.5 g/dL (12.0-16.0); Lymphocytes Absolute Auto 1700 /uL (1100-4500); Lymphocytes Percent Auto 26.7 % (25-40); Mean Corpuscular Hemoglobin 32.1 PG (26-34); Mean Corpuscular Volume 94.2 fL (80-100); Monocytes Absolute Auto 500 /uL (0-900); Monocytes Percent Auto 7.5 % (3-14); Neutrophils Absolute Auto 4100 /uL (1500-7000); Neutrophils Percent Auto 62.7 % (50-75); Platelet Count 230 X10^3/uL (150-400); Red Cell Distribution Width 13.7 % (11.6-14.8); White Blood Cell Count 6.5 X10^3/uL (4.5-11.0)
[2023-12-03 12:31] LABS: BUN Creatinine Ratio 19.5 (6-22); Blood Urea Nitrogen 40 mg/dL (7-17); Carbon Dioxide 32 mmol/L (22-32); Chloride 98 mmol/L (98-107); Estimated Glomerular Filt Rate 24 mL/min (>60); Glucose 97 mg/dL (80-110); HEMOLYSIS < 15 (0-50); Phosphorous 4.4 mg/dL (2.8-4.1); Potassium 4.6 mmol/L (3.4-5.1); Sodium 133 mmol/L (137-145)
[2023-12-03 13:43] LABS: Vitamin D 25 Hydroxy (D3) 65.7 ng/mL (30.0-100.0)
[2023-12-03 14:08] LABS: Creatinine Urine Random 77.1 mg/dL
[2023-12-03 14:28] LABS: Microalbumin Urine Random < 0.6 mg/dL (0-1.6)
[2023-12-06 09:07] LABS: Parathyroid Hormone Int 38 pg/mL (15-65)
== END ==
PROVIDERS: PCP Student in an Organized Health Care Education/Training Program; Referring Provider Internal Medicine Nephrology; Visit Provider Internal Medicine Nephrology
DX: N18.32 Chronic kidney disease, stage 3b (principal); N17.9 Acute kidney failure, unspecified
CPT/HCPCS: 36415; 80048; 82043; 82306; 82570; 83970; 84100; 85025

== ENCOUNTER → 2023-12-28 09:41 | Outpatient (CLI) | payer MEDICARE, SELFPAY ==
[2019-10-11 12:10] VITALS: BMI 19.4
--- NOTE | 2023-12-28 09:42 | DI.US.S_ITS ---
PROCEDURE: US CAROTID DOPPLER BI INDICATIONS: Chest pain, unspecified TECHNIQUE: Color and pulse Doppler interrogation was performed of both carotid systems, with image documentation and velocity measurements. COMPARISON: [facility], , CAROTID ARTERY DOPPLER BILAT, 10/19/2007, 12:50. FINDINGS: Stenosis calculations are based on SRU (Society of Radiologists in Ultrasound) criteria. Note: Brachial blood pressures could not be obtained secondary to lymphedema. Right side: Brachial blood pressure: Could not be obtained. Common carotid artery peak systolic velocity: 129 cm/sec. Internal carotid artery peak systolic velocity: 109 cm/sec. Previously 110 cm/s. Internal carotid artery end diastolic velocity: 29 cm/sec. External carotid artery peak systolic velocity: 61 cm/sec. ICA/CCA peak systolic ratio: 1.7 . Levy scale imaging description: Minimal calcified plaque. Percent internal carotid artery stenosis: Less than 50% . Vertebral artery: Flow direction is antegrade. Left side: Brachial blood pressure: Could not be obtained. Common carotid artery peak systolic velocity: 73 cm/sec. Internal carotid artery peak systolic velocity: 163 cm/sec. Previously 108 cm/sec. Internal carotid artery end diastolic velocity: 40 cm/sec. External carotid artery peak systolic velocity: 66 cm/sec. ICA/CCA peak systolic ratio: 3.1 . Levy scale imaging description: Mild atherosclerotic plaque. Percent internal carotid artery stenosis: 50-69% . Vertebral artery: Flow direction is antegrade. IMPRESSION: Less than 50% stenosis of the right internal carotid artery by peak systolic velocity criteria. 50-60% stenosis of the left internal carotid artery by peak systolic velocity criteria. Dictated by: Juan Castillo M.D. on 12/28/2023 at 15:52 Approved by: Juan Castillo M.D. on 12/28/2023 at 15:55
--- NOTE | 2023-12-28 21:56 | DI.NM.S_ITS ---
DATE OF SERVICE: 12/28/2023 PROCEDURE: Exercise treadmill, converted to a pharmacologic vasodilator stress and rest myocardial perfusion study with gating to assess ejection fraction and regional wall motion. ORDERING PROVIDER: Flores Ruby M.D. INDICATIONS: The patient is an 83-year-old female with chronic kidney disease and exertional chest discomfort and dyspnea. CARDIAC STRESS: The patient was initially stressed by a treadmill, but was able to exercise for only 3 minutes and 45 seconds on a standard Myke protocol with a blunted heart rate response, achieving a maximum heart rate of around 109 BPM, although artifact precludes an accurate measurement. She was unable to keep up with the treadmill and therefore was converted to a pharmacologic vasodilator stress by injection of 0.4 mg of regadenoson. With this, she had no chest discomfort and only minimal dyspnea. Her resting ECG was normal with normal ST segments. While her stress tracings were corrupted by motion artifact, there were no compelling ST-segment deviations noted, although mild ST depression was seen in the recovery tracings. There were no arrhythmias. Per protocol, 26.7 millicuries of technetium-99m Myoview was injected and she was imaged 15 minutes later using a gated SPECT acquisition protocol. Earlier in the day while at rest, she had been injected with 10.2 millicuries of technetium-99m Myoview and was imaged 15 minutes later, again using a gated SPECT acquisition protocol. FINDINGS: 1. Raw data. There is fairly good myocardial tracer uptake. The patient had to be imaged with her right arm down and this could introduce some artifact. She was unable to lie prone. The lung/heart ratio is elevated at 0.46, possibly suggesting pulmonary congestion but is nonspecific with vasodilators stress and is not evident visually. The TID ratio is normal at 0.66. 2. Quantitative gated SPECT: Post-stress ejection fraction is estimated at 88% without any focal wall motion abnormality and is likely an overestimate because of relatively small left ventricular volumes. The resting ejection fraction is 84% with a low normal resting end-diastolic volume of 79 mL. 3. Myocardial perfusion imaging: Post-stress supine images show a uniform pattern of tracer activity without any concerning perfusion defects. The resting images show no areas of improvement. IMPRESSION: 1. Normal myocardial perfusion study for ischemia. 2. There are no perfusion defects to suggest myocardial ischemia or previous myocardial infarction. 3. High normal left ventricular systolic function with relatively small left ventricular volumes and no focal wall motion abnormality. The lung/heart ratio is mildly elevated at 0.46 which can be a sign of pulmonary congestion but is nonspecific and is not visually evident and requires clinical correlation. 4. Mildly impaired exercise capacity with a slightly blunted heart rate response to exercise. She had no chest discomfort or arrhythmias, although had subtle ST depression noted in the recovery phase. Lupe Suazo - RANDALL/spencer/JOSE doc#: [id number]/job#: [id number] dd: 12/28/2023 17:05:00 dt: 12/28/2023 21:41:00 DICTATING MD/COPIES TO: Jhony Sapp MD; Flores Ruby M.D. COPIES MNE: GLENN;
== END ==
LOC: NUCM 09:41
PROVIDERS: PCP Student in an Organized Health Care Education/Training Program; Referring Provider Internal Medicine Cardiovascular Disease; Visit Provider Internal Medicine Cardiovascular Disease
DX: I65.23 Occlusion and stenosis of bilateral carotid arteries (principal); R07.9 Chest pain, unspecified; R09.89 Other specified symptoms and signs involving the circulatory and respiratory systems
CPT/HCPCS: 78452; 93017; 93880; A9502; J2785

== ENCOUNTER → 2024-01-07 13:52 | Outpatient (CLI) | payer MEDICARE, SELFPAY ==
[2019-10-11 12:10] VITALS: BMI 19.4
[2024-01-07 21:36] LABS: BUN Creatinine Ratio 19.1 (6-22); Blood Urea Nitrogen 40 mg/dL (7-17); Calcium 8.9 mg/dL (8.4-10.2); Carbon Dioxide 29 mmol/L (22-32); Chloride 98 mmol/L (98-107); Estimated Glomerular Filt Rate 23 mL/min (>60); Glucose 132 mg/dL (80-110); Potassium 3.9 mmol/L (3.4-5.1); Sodium 135 mmol/L (137-145)
[2024-01-07 21:46] LABS: HEMOLYSIS < 15 (0-50)
== END ==
PROVIDERS: PCP Student in an Organized Health Care Education/Training Program; Referring Provider Internal Medicine Nephrology; Visit Provider Internal Medicine Nephrology
DX: E87.1 Hypo-osmolality and hyponatremia (principal)
CPT/HCPCS: 36415; 80048

== ENCOUNTER → 2024-04-16 09:50 | Outpatient (CLI) | payer MEDICARE, SELFPAY ==
[2019-10-11 12:10] VITALS: BMI 19.4
--- NOTE | 2024-04-16 09:51 | DI.MG.S_ITS ---
BILATERAL DIGITAL SCREENING MAMMOGRAM 3D/2D WITH CAD: 04/16/2024 CLINICAL: Routine screening. Personal history of right breast cancer. Comparison is made to exams dated: 03/09/2023 mammogram, 02/12/2022 mammogram, and 01/26/2021 mammogram - . Both breasts are heterogeneously dense, which may obscure small masses (category c / 51-75% glandular tissue). Current study was also evaluated with a Computer Aided Detection (CAD) system. There are benign vascular calcifications in both breasts. There also are benign post operative findings in the right breast. No significant masses, calcifications, or other findings are seen in either breast. There has been no significant interval change. IMPRESSION: BENIGN There is no mammographic evidence of malignancy. A 1 year screening mammogram is recommended. This exam was interpreted at Station ID: [id number]. NOTE: For mammograms, a report in lay terms will be sent to the patient. Approximately 15% of breast malignancies will not be visualized mammographically. In the management of a palpable breast mass, a negative mammogram must not discourage biopsy of a clinically suspicious lesion. Electronically Signed By: Floyd robert/myke:04/18/2024 09:20:30 letter sent: Normal Exam ACR BI-RADS Category 2: Benign Finding(s) 3342F
== END ==
LOC: MAMMO 09:50
PROVIDERS: PCP Student in an Organized Health Care Education/Training Program; Referring Provider Student in an Organized Health Care Education/Training Program; Visit Provider Student in an Organized Health Care Education/Training Program
DX: Z12.31 Encounter for screening mammogram for malignant neoplasm of breast (principal); Z85.3 Personal history of malignant neoplasm of breast; R92.333 Mammographic heterogeneous density, bilateral breasts
CPT/HCPCS: 77063; 77067

== ENCOUNTER → 2024-05-27 13:01 | Outpatient (CLI) | payer MEDICARE, SELFPAY ==
[2019-10-11 12:10] VITALS: BMI 19.4
[2024-05-27 14:12] LABS: BUN Creatinine Ratio 20.2 (6-22); Blood Urea Nitrogen 42 mg/dL (7-17); Calcium 8.9 mg/dL (8.4-10.2); Carbon Dioxide 28 mmol/L (22-32); Chloride 97 mmol/L (98-107); Estimated Glomerular Filt Rate 23 mL/min (>60); Glucose 119 mg/dL (80-110); HEMOLYSIS < 15 (0-50); Magnesium 1.8 mg/dL (1.6-2.3); Phosphorous 4.3 mg/dL (2.8-4.1); Potassium 4.7 mmol/L (3.4-5.1); Sodium 133 mmol/L (137-145)
[2024-05-27 14:29] LABS: Vitamin D 25 Hydroxy (D3) 78.1 ng/mL (30.0-100.0)
[2024-05-28 09:12] LABS: Parathyroid Hormone Int 44 pg/mL (15-65)
== END ==
PROVIDERS: PCP Student in an Organized Health Care Education/Training Program; Referring Provider Internal Medicine Nephrology; Visit Provider Internal Medicine Nephrology
DX: N18.4 Chronic kidney disease, stage 4 (severe) (principal)
CPT/HCPCS: 36415; 80048; 82040; 82306; 83735; 83970; 84100

== ENCOUNTER → 2024-07-05 12:16 | Outpatient (CLI) | payer MEDICARE, SELFPAY ==
[2019-10-11 12:10] VITALS: BMI 19.4
[2024-07-05 14:09] LABS: BUN Creatinine Ratio 19.9 (6-22); Blood Urea Nitrogen 42 mg/dL (7-17); Calcium 9.3 mg/dL (8.4-10.2); Carbon Dioxide 30 mmol/L (22-32); Chloride 94 mmol/L (98-107); Estimated Glomerular Filt Rate 23 mL/min (>60); Glucose 123 mg/dL (80-110); HEMOLYSIS < 15 (0-50); Potassium 4.2 mmol/L (3.4-5.1); Sodium 132 mmol/L (137-145)
[2024-07-07 10:12] LABS: Osmolality Urine 384 mOsmol/kg (.); Osmolality, Serum 295 mOsmol/kg (280-301)
== END ==
PROVIDERS: PCP Student in an Organized Health Care Education/Training Program; Referring Provider Internal Medicine Nephrology; Visit Provider Internal Medicine Nephrology
DX: E87.1 Hypo-osmolality and hyponatremia (principal)
CPT/HCPCS: 36415; 80048; 83930; 83935

== ENCOUNTER → 2024-11-30 08:03 | Outpatient (CLI) | payer MEDICARE, SELFPAY ==
[2019-10-11 12:10] VITALS: BMI 19.4
[2024-11-30 08:38] LABS: Add Manual Diff / Slide Review NO; Basophils Absolute Auto 0 /uL (0-100); Basophils Percent Auto 0.5 % (0-2); Eosinophils Absolute Auto 100 /uL (0-450); Eosinophils Percent Auto 2.7 % (2-4); Hematocrit 38.6 % (36-46); Hemoglobin 13.1 g/dL (12.0-16.0); Lymphocytes Absolute Auto 1500 /uL (1100-4500); Lymphocytes Percent Auto 30.7 % (25-40); Mean Corpuscular HGB Conc 34.1 % (30-36); Mean Corpuscular Hemoglobin 32.1 PG (26-34); Mean Corpuscular Volume 94.4 fL (80-100); Monocytes Absolute Auto 300 /uL (0-900); Monocytes Percent Auto 6.3 % (3-14); Neutrophils Absolute Auto 3000 /uL (1500-7000); Neutrophils Percent Auto 59.8 % (50-75); Platelet Count 209 X10^3/uL (150-400); Red Blood Cell Count 4.09 X10^6/uL (4.0-5.2); Red Cell Distribution Width 13.5 % (11.6-14.8)
[2024-11-30 08:45] LABS: Hemoglobin A1C% w Est Avg Glu 5.4 % (4.0-6.0)
[2024-11-30 08:53] LABS: Albumin 4.4 g/dL (3.5-5.0); BUN Creatinine Ratio 18.3 (6-22); Blood Urea Nitrogen 44 mg/dL (7-17); Calcium 9.3 mg/dL (8.4-10.2); Carbon Dioxide 30 mmol/L (22-32); Chloride 98 mmol/L (98-107); Estimated Glomerular Filt Rate 19 mL/min (>60); Glucose 105 mg/dL (80-110); HEMOLYSIS < 15 (0-50); Potassium 4.3 mmol/L (3.4-5.1); Sodium 136 mmol/L (137-145)
[2024-11-30 08:58] LABS: Cholesterol 167 mg/dL (140-199); HDL Cholesterol 57 mg/dL (40-60); LDL Cholesterol Calculated 80 mg/dL (<100); Triglycerides 152 mg/dL (35-150)
[2024-11-30 09:11] LABS: Free T4, Direct Thyroxine 1.15 ng/dL (0.78-2.19)
[2024-11-30 09:25] LABS: Thyroid Stimulating Hormone 4.57 uIU/mL (0.47-4.68)
== END ==
PROVIDERS: PCP Student in an Organized Health Care Education/Training Program; Referring Provider Internal Medicine Nephrology; Visit Provider Internal Medicine Nephrology
DX: N18.4 Chronic kidney disease, stage 4 (severe) (principal); Z13.1 Encounter for screening for diabetes mellitus; E78.5 Hyperlipidemia, unspecified
CPT/HCPCS: 36415; 80048; 80061; 82040; 83036; 84439; 84443; 85025

== ENCOUNTER → 2024-12-20 11:38 | Outpatient (CLI) | payer MEDICARE, SELFPAY ==
[2019-10-11 12:10] VITALS: BMI 19.4
[2024-12-20 12:49] LABS: Creatinine Urine Random 87.91 mg/dL
[2024-12-20 13:00] LABS: Albumin 4.2 g/dL (3.5-5.0); BUN Creatinine Ratio 17.8 (6-22); Blood Urea Nitrogen 41 mg/dL (7-17); Carbon Dioxide 29 mmol/L (22-32); Chloride 97 mmol/L (98-107); Estimated Glomerular Filt Rate 20 mL/min (>60); Glucose 132 mg/dL (70-99); HEMOLYSIS < 15 (0-50); Potassium 4.1 mmol/L (3.4-5.1); Sodium 136 mmol/L (137-145)
[2024-12-20 13:08] LABS: Microalbumin Urine Random 0.7 mg/dL (0-1.6)
== END ==
PROVIDERS: PCP Student in an Organized Health Care Education/Training Program; Referring Provider Internal Medicine Nephrology; Visit Provider Internal Medicine Nephrology
DX: N17.9 Acute kidney failure, unspecified (principal)
CPT/HCPCS: 36415; 80048; 82040; 82043; 82570

== ENCOUNTER → 2025-03-28 12:12 | Outpatient (CLI) | payer MEDICARE, SELFPAY ==
[2019-10-11 12:10] VITALS: BMI 19.4
[2025-03-28 13:30] LABS: Albumin 4.3 g/dL (3.5-5.0); Blood Urea Nitrogen 42 mg/dL (7-17); Calcium 9.3 mg/dL (8.4-10.2); Carbon Dioxide 27 mmol/L (22-32); Chloride 99 mmol/L (98-107); Estimated Glomerular Filt Rate 21 mL/min (>60); Glucose 135 mg/dL (70-99); HEMOLYSIS < 15 (0-50); Magnesium 1.9 mg/dL (1.6-2.3); Phosphorous 4.4 mg/dL (2.8-4.1); Potassium 4.3 mmol/L (3.4-5.1); Sodium 135 mmol/L (137-145)
[2025-03-28 15:53] LABS: Microalbumi Creatinin Ratio Ur 13.0 ug/mg CR (<30)
[2025-03-28 15:58] LABS: Vitamin D 25 Hydroxy (D3) 81.5 ng/mL (30.0-100.0)
== END ==
PROVIDERS: PCP Student in an Organized Health Care Education/Training Program; Referring Provider Internal Medicine Nephrology; Visit Provider Internal Medicine Nephrology
DX: N18.4 Chronic kidney disease, stage 4 (severe) (principal)
CPT/HCPCS: 36415; 80048; 82040; 82043; 82306; 82570; 83735; 83970; 84100